=== PATIENT | female | born 1960 | race Caucasian/White ===

== ENCOUNTER 2020-08-28 09:36 | Inpatient (IN) | payer BC ==
[~2020-08-28] VITALS: Ht 165.1 cm; Wt 80.6 kg
[2020-08-28 10:56] LABS: BASOPHILS ABSOLUTE AUTO 0.02 K/mm3 (0.00-0.23); BASOPHILS PERCENT AUTO 0 % (0-2); EOSINOPHILS ABSOLUTE AUTO 0.01 K/mm3 (0.00-0.68); EOSINOPHILS PERCENT AUTO 0 % (0-6); Hematocrit 51.7 % (33.0-51.0); Hemoglobin 19.2 g/dL (11.5-16.0); IMMATURE GRAN ABSOLUTE AUTO 0.01 K/mm3 (0.00-0.10); IMMATURE GRAN PERCENT AUTO 0 % (0-1); LYMPHOCYTES ABSOLUTE AUTO 1.39 K/mm3 (0.84-5.20); LYMPHOCYTES PERCENT AUTO 18 % (21-46); MONOCYTES ABSOLUTE AUTO 0.68 K/mm3 (0.16-1.47); MONOCYTES PERCENT AUTO 9 % (4-13); Mean Corpuscular HGB 29.1 pg (26.0-34.0); Mean Corpuscular HGB Conc 37.1 g/dL (31.5-36.5); Mean Corpuscular Volume 78 fL (80-100); Mean Platelet Volume 9.8 fL (9.1-12.4); NEUTROPHILS ABSOLUTE AUTO 5.76 K/mm3 (1.96-9.15); NEUTROPHILS PERCENT AUTO 73 % (41-73); Platelet Count 361 K/mm3 (150-400); RDW Coefficient Variation 14.6 % (11.7-14.2); White Blood Cell Count 7.87 K/mm3 (4.00-11.30)
[2020-08-28 11:05] LABS: Source, Urine Clean Catch
[2020-08-28 11:27] LABS: Appearance, Urine Cloudy (Clear); Blood, Urine 4+ (Neg); Color, Urine Yellow (P-Yellow); Glucose Qualitative, Urine Neg (Neg); Ketones, Urine 1+ (Neg); Leukocyte Esterase, Urine 2+ (Neg); Nitrite, Urine Neg (Neg); Protein, Urine 2+ (Neg); Urobilinogen, Urine NORM (Normal); pH, Urine 6.5 (5.0-8.0)
[2020-08-28] MEDS ORDERED: OMEPRAZOLE MAGN20 M1 PO (11:29)
[2020-08-28 11:41] LABS: Albumin, Blood 4.2 g/dL (3.4-5.0); Bilirubin, Total 1.1 mg/dL (0.1-1.0); Creatinine, Blood 1.43 mg/dL (0.40-1.00); Globulin, Blood 4.2 g/dL (2.2-4.0); Potassium, Blood 2.1 mmol/L (3.5-5.5); Total Protein, Blood 8.4 g/dL (6.4-8.2)
[2020-08-28 11:48] LABS: Bilirubin, Urine 1+ (Neg)
[2020-08-28 11:51] LABS: Bacteria Few /hpf; Squamous Epithelial Cells Many /hpf (Few)
--- NOTE | 2020-08-28 18:32 | NUR ---
SHIFT SUMMARY PT ARRIVED TO MEDICAL FLOOR FOR ADMISSION AT APPROX 1600 TODAY. PT AxOx4. PLEASANT AND COOPERATIVE WITH CARE. ADMISSION & ASSESSMENT COMPLETED. IN THE ROOM. PT REPORTS NAUSEA. MEDICATED PER EMAR. CLEAR LIQ DIET. SBA FOR GENERAL WEAKNESS. PT CALLING APPROPRIATELY. PT ON CONTACT PRECAUTIONS FOR RULE OUT GI PANEL. PT GETTING IV POTASSIUM SUPPLEMENTS. VITALS REVIEWED. DENIES ANY NEEDS AT THIS TIME.
--- NOTE | 2020-08-28 21:12 | NUR ---
CALLED HOSPITALIST PT EXPERIENCING SEVERE NAUSEA. EMAR ZOFRAN WAS NOT DUE YET. NEW NAUSEA MEDICATION ORDERED AND IS NOW AVAILABLE PRN IN EMAR. I WILL WAIT TO ADMIN HER SCHEDULED PO MEDS UNTIL THE NAUSEA MEDICATION TAKES EFFECT.
--- NOTE | 2020-08-28 23:39 | NUR ---
IV POTASSIUM PT UNABLE TO TOLERATE IV POTASSIUM AT PRESCRIBED RATE. SHE SCREAMS IN PAIN, EVEN THOUGH I HAVE NS INFUSING AT SAME TIME. I HAVE IT INFUSING AT 20 ML/HR, WHICH SHE IS TOLERATING FOR NOW. SHE DOES STATE ALSO THAT SHE IS SUFFERING FROM ANXIETY.
--- NOTE | 2020-08-29 04:42 | NUR ---
SHIFT SUMMARY ADMITTED FOR N/V/D AND DEHYDRATION. FULL CODE. PT HAS COLITIS. HYPOKALEMIC, WE HAVE BEEN REPLACING K+. SHE DID NOT TOLERATE K+ IV WELL, WE WERE FORCED TO SLOW THE INFUSION SIGNIFICANTLY. BLOOD LABS HAVE BEEN DRAWN (INCLUDING BMP). I DID COLLECT AND SEND GI PANEL THIS SHIFT. CLEAR LIQUID DIET. NAUSEA THIS SHIFT, SEE PREVIOUS NOTE - COMPAZINE ORDERED WAS EFFECTIVE. NS INFUSING @ 125 ML/HR. BM'S ARE LIQUID. TELEMETRY: NSR @ 61 BPM.
[2020-08-29 04:50] LABS: Hematocrit 41.3 % (33.0-51.0); Hemoglobin 14.6 g/dL (11.5-16.0); Mean Corpuscular HGB Conc 35.4 g/dL (31.5-36.5); Mean Corpuscular Volume 82 fL (80-100); Mean Platelet Volume 9.9 fL (9.1-12.4); Platelet Count 233 K/mm3 (150-400); RDW Coefficient Variation 14.5 % (11.7-14.2); RDW Standard Deviation 41.7 fL (35.1-46.3); Red Blood Cell Count 5.03 M/mm3 (3.80-5.20); White Blood Cell Count 6.14 K/mm3 (4.00-11.30)
[2020-08-29 05:20] LABS: Bun/Creatinine Ratio 22.9 (12.0-20.0); Calcium, Blood 8.3 mg/dL (8.5-10.1); Creatinine, Blood 1.05 mg/dL (0.40-1.00); Magnesium, Blood 2.4 mg/dL (1.6-2.4)
[2020-08-29 07:58] LABS: Adenovirus F 40/41 Not Detected (NOT DETECT); Astrovirus Not Detected (NOT DETECT); Campylobacter Sp Not Detected (NOT DETECT); Cryptosporidium Not Detected (NOT DETECT); Cyclospora Cayetanensis Not Detected (NOT DETECT); E. Coli O157 Not Detected (NOT DETECT); Entamoeba Histolytica Not Detected (NOT DETECT); Enteroaggregative E. coli-EAEC Not Detected (NOT DETECT); Enteropathogenic E. coli-EPEC Not Detected (NOT DETECT); Enterotoxigenic E. coli-ETEC Not Detected (NOT DETECT); Giardia Lamblia Not Detected (NOT DETECT); Norovirus GI/GII Not Detected (NOT DETECT); Plesiomonas Shigelloides Not Detected (NOT DETECT); Rotavirus A Not Detected (NOT DETECT); Salmonella Sp Not Detected (NOT DETECT); Sapovirus Not Detected (NOT DETECT); Shiga Toxin-prod E. coli-STEC Not Detected (NOT DETECT); Shigella/Enteroin E. coli-EIEC Not Detected (NOT DETECT); Vibrio Cholerae Not Detected (NOT DETECT); Vibrio Sp Not Detected (NOT DETECT); Yersinia Enterocolitica Not Detected (NOT DETECT)
[2020-08-29] MEDS ORDERED: ORTIKOS9 MG PO (12:54)
--- NOTE | 2020-08-29 13:44 | NUR ---
DISCHARGE SUMMARY PT AxOx4. PLEASANT AND COOPERATIVE WITH CARE. DC'ING TODAY TO HOME WITH . DISCUSSED DC INSTRUCTIONS WITH PATIENT, INCLUDING DC MEDICATIONS, AND FOLLOW UP APPTS. PT VERBALIZES UNDERSTANDING. DENIES ANY FURTHER QUESTIONS AT THIS TIME. VITALS REVIEWED. ESCORTED OUT VIA WC WITH KEY ENTRY OPERATOR AND .
== END 2020-08-29 13:41 | disposition home or self-care (01) | DRG 392 ==
LOC: ER 09:36 → MEDS 14:12 → ENPENDDIS 08-29 12:23 → MEDS 08-29 13:41
PROVIDERS: Emergency Medicine; Nurse Practitioner Acute Care; ADMIT Internal Medicine
PROC: 3E0234Z Introduction of Serum, Toxoid and Vaccine into Muscle, Percutaneous Approach (ICD-10-PCS; principal; 2020-08-28)
DX: K52.832 Lymphocytic colitis (principal); N17.9 Acute kidney failure, unspecified; E87.6 Hypokalemia; I10 Essential (primary) hypertension; E86.0 Dehydration; Z23 Encounter for immunization; E86.9 Volume depletion, unspecified; M79.7 Fibromyalgia; K21.9 Gastro-esophageal reflux disease without esophagitis; Z87.891 Personal history of nicotine dependence
CPT/HCPCS: 0097U; 36415; 74177; 80048; 80053; 81001; 82150; 83690; 83735; 84484; 85025; 85027; 87086; 93005; 93010; 96365-59; 96366; 96375; 96376; 99285-25; A9270; J0780; J2270; J2405; J3480; J7030; J7120; Q2038; Q9967

== ENCOUNTER → 2020-09-03 | Outpatient (CLI) | payer BC ==
[~2020-09-03] MED LIST: AMLO5 PO; Bactrim Ds Tab1 EACH PO; Flomax0.4 MG PO; IMODIUM A-D2 M1 PO; OMEPRAZOLE MAGN20 M1 PO; ONDA4ODT MM; ORTIKOS9 MG PO; OXYB5 PO; Ondansetron Odt8 MG SL; POTA20LUD PO; PREG150 PO; PYRIDIUM200 MG PO; Percocet 5-3251 EACH PO; TAMSULOSIN HCL0.4 M1 PO
[2020-09-03 20:07] LABS: Anion Gap 5 mmol/L (6-16); Blood Urea Nitrogen 11 mg/dL (8-24); CO2, Blood 32 mmol/L (21-32); Calcium, Blood 8.7 mg/dL (8.5-10.1); Chloride, Blood 107 mmol/L (98-108); Creatinine, Blood 0.52 mg/dL (0.40-1.00); Glomerular Filtration Rate >60 (60-); Glucose, Blood 86 mg/dL (70-99); Potassium, Blood 2.7 mmol/L (3.5-5.5); Sodium, Blood 144 mmol/L (136-145)
== END | disposition home or self-care (01) ==
LOC: LAB SHORT 19:08 → LAB 19:08
PROVIDERS: Family Medicine
DX: E87.6 Hypokalemia (principal)
CPT/HCPCS: 80048

== ENCOUNTER 2020-09-23 19:19 | Emergency (ER) | payer BC ==
[~2020-09-23] VITALS: Ht 165.1 cm; Wt 80.7 kg
[~2020-09-23 19:19] MED LIST changes: -AMLO5 PO; -Bactrim Ds Tab1 EACH PO; -Flomax0.4 MG PO; -IMODIUM A-D2 M1 PO; -ONDA4ODT MM; -OXYB5 PO; -Ondansetron Odt8 MG SL; -POTA20LUD PO; -PREG150 PO; -PYRIDIUM200 MG PO; -Percocet 5-3251 EACH PO; -TAMSULOSIN HCL0.4 M1 PO
[2020-09-23 20:50] LABS: BASOPHILS ABSOLUTE AUTO 0.01 K/mm3 (0.00-0.23); BASOPHILS PERCENT AUTO 0 % (0-2); EOSINOPHILS ABSOLUTE AUTO 0.04 K/mm3 (0.00-0.68); EOSINOPHILS PERCENT AUTO 1 % (0-6); Hematocrit 49.3 % (33.0-51.0); Hemoglobin 16.1 g/dL (11.5-16.0); IMMATURE GRAN ABSOLUTE AUTO 0.02 K/mm3 (0.00-0.10); IMMATURE GRAN PERCENT AUTO 0 % (0-1); LYMPHOCYTES ABSOLUTE AUTO 1.19 K/mm3 (0.84-5.20); LYMPHOCYTES PERCENT AUTO 17 % (21-46); MONOCYTES ABSOLUTE AUTO 0.56 K/mm3 (0.16-1.47); MONOCYTES PERCENT AUTO 8 % (4-13); Mean Corpuscular HGB 28.3 pg (26.0-34.0); Mean Corpuscular HGB Conc 32.7 g/dL (31.5-36.5); Mean Corpuscular Volume 87 fL (80-100); Mean Platelet Volume 9.9 fL (9.1-12.4); NEUTROPHILS ABSOLUTE AUTO 5.12 K/mm3 (1.96-9.15); NEUTROPHILS PERCENT AUTO 74 % (41-73); Platelet Count 278 K/mm3 (150-400); RDW Coefficient Variation 14.2 % (11.7-14.2); RDW Standard Deviation 45.6 fL (35.1-46.3); Red Blood Cell Count 5.69 M/mm3 (3.80-5.20); White Blood Cell Count 6.94 K/mm3 (4.00-11.30)
[2020-09-23 21:25] LABS: Alanine Aminotransfer (ALT/SGP 23 U/L (12-78); Albumin/Globulin Ratio 1.1 (0.8-1.8); Alk Phos 72 U/L (50-136); Anion Gap 7 mmol/L (6-16); Aspartate Aminotrans (AST/SGOT 17 U/L (12-37); Bilirubin, Total 0.5 mg/dL (0.1-1.0); Blood Urea Nitrogen 9 mg/dL (8-24); CO2, Blood 23 mmol/L (21-32); Calcium, Blood 10.1 mg/dL (8.5-10.1); Chloride, Blood 110 mmol/L (98-108); Creatinine, Blood 0.75 mg/dL (0.40-1.00); Globulin, Blood 3.7 g/dL (2.2-4.0); Glomerular Filtration Rate >60 (60-); Glucose, Blood 105 mg/dL (70-99); Potassium, Blood 4.1 mmol/L (3.5-5.5); Sodium, Blood 140 mmol/L (136-145); Total Protein, Blood 7.7 g/dL (6.4-8.2)
[2020-09-23 21:38] LABS: Source, Urine Clean Catch
[2020-09-23 21:49] LABS: Appearance, Urine Turbid (Clear); Bilirubin, Urine Neg (Neg); Blood, Urine 5+ (Neg); Color, Urine Brown (P-Yellow); Glucose Qualitative, Urine Neg (Neg); Ketones, Urine 2+ (Neg); Leukocyte Esterase, Urine 2+ (Neg); Nitrite, Urine Neg (Neg); Protein, Urine 4+ (Neg); Specific Gravity, Urine 1.025 (1.003-1.022); Urobilinogen, Urine NORM (Normal); pH, Urine 6.5 (5.0-8.0)
[2020-09-23 21:56] LABS: Bacteria Many /hpf; Calcium Oxalate Crystals Few /hpf; Red Blood Cells, Urine TNTC /hpf (0-2); Squamous Epithelial Cells Not Seen /hpf (Few); White Blood Cells, Urine 25-50 /hpf (0-5); Yeast/Fungi Urine Few /hpf
[2020-09-23 21:57] LABS: Amorphous Mod (0-Heavy)
[2020-09-24] MEDS ORDERED: Bactrim Ds Tab1 EACH PO (02:02)
[2020-09-24] MEDS ORDERED: ONDA4ODT MM (02:02)
[2020-09-24] MEDS ORDERED: Flomax0.4 MG PO (02:02)
[2020-09-24] MEDS ORDERED: Percocet 5-3251 EACH PO (02:02)
== END 2020-09-24 02:44 | disposition home or self-care (01) ==
LOC: ER 19:19
PROVIDERS: Student in an Organized Health Care Education/Training Program
DX: N13.2 Hydronephrosis with renal and ureteral calculous obstruction (principal); I10 Essential (primary) hypertension; K21.9 Gastro-esophageal reflux disease without esophagitis; Z87.891 Personal history of nicotine dependence; Z79.52 Long term (current) use of systemic steroids; Z79.899 Other long term (current) drug therapy
CPT/HCPCS: 36415; 74176; 80053; 81001; 83690; 85025; 87086; 96365; 96375; 99284-25; A9270; J0696; J1170; J1885; J2405; J7030

== ENCOUNTER 2020-11-27 15:52 | Observation (INO) | payer BC ==
[~2020-11-27] VITALS: Ht 167.6 cm; Wt 78.6 kg
[~2020-11-27 15:52] MED LIST changes: +Bactrim Ds Tab1 EACH PO; +Flomax0.4 MG PO; +ONDA4ODT MM; +Percocet 5-3251 EACH PO
[2020-11-27 16:23] LABS: BASOPHILS ABSOLUTE AUTO 0.02 K/mm3 (0.00-0.23); BASOPHILS PERCENT AUTO 0 % (0-2); EOSINOPHILS PERCENT AUTO 0 % (0-6); Hematocrit 50.7 % (33.0-51.0); Hemoglobin 16.8 g/dL (11.5-16.0); IMMATURE GRAN ABSOLUTE AUTO 0.03 K/mm3 (0.00-0.10); IMMATURE GRAN PERCENT AUTO 0 % (0-1); LYMPHOCYTES ABSOLUTE AUTO 0.94 K/mm3 (0.84-5.20); LYMPHOCYTES PERCENT AUTO 11 % (21-46); MONOCYTES ABSOLUTE AUTO 0.38 K/mm3 (0.16-1.47); MONOCYTES PERCENT AUTO 5 % (4-13); Mean Corpuscular HGB 28.1 pg (26.0-34.0); Mean Corpuscular HGB Conc 33.1 g/dL (31.5-36.5); Mean Corpuscular Volume 85 fL (80-100); NEUTROPHILS PERCENT AUTO 83 % (41-73); Platelet Count 280 K/mm3 (150-400); RDW Coefficient Variation 13.6 % (11.7-14.2); RDW Standard Deviation 42.4 fL (35.1-46.3); Red Blood Cell Count 5.98 M/mm3 (3.80-5.20); White Blood Cell Count 8.27 K/mm3 (4.00-11.30)
[2020-11-27 16:54] LABS: Alanine Aminotransfer (ALT/SGP 17 U/L (12-78); Albumin, Blood 4.3 g/dL (3.4-5.0); Albumin/Globulin Ratio 1.2 (0.8-1.8); Alk Phos 57 U/L (50-136); Anion Gap 7 mmol/L (6-16); Aspartate Aminotrans (AST/SGOT 12 U/L (12-37); Bilirubin, Total 0.8 mg/dL (0.1-1.0); Blood Urea Nitrogen 11 mg/dL (8-24); Bun/Creatinine Ratio 16.6 (12.0-20.0); CO2, Blood 27 mmol/L (21-32); Chloride, Blood 103 mmol/L (98-108); Creatinine, Blood 0.66 mg/dL (0.40-1.00); Globulin, Blood 3.7 g/dL (2.2-4.0); Glomerular Filtration Rate >60 (60-); Glucose, Blood 164 mg/dL (70-99); Potassium, Blood 3.2 mmol/L (3.5-5.5); Sodium, Blood 137 mmol/L (136-145); Troponin I <0.015 ng/mL (0.000-0.040)
[2020-11-27] MEDS ORDERED: AMLO5 PO (17:01)
[2020-11-27] MEDS ORDERED: POTA20LUD PO (17:01)
[2020-11-27] MEDS ORDERED: PREG150 PO (19:34)
[2020-11-27] MEDS ORDERED: OXYB5 PO (19:36)
[2020-11-27] MEDS ORDERED: PYRIDIUM200 MG PO (19:38)
[2020-11-27] MEDS ORDERED: IMODIUM A-D2 M1 PO (19:39)
[2020-11-27] MEDS ORDERED: Ondansetron Odt8 MG SL (19:41)
[2020-11-27] MEDS ORDERED: TAMSULOSIN HCL0.4 M1 PO (19:44)
[2020-11-28 02:53] LABS: Anion Gap 6 mmol/L (6-16); Blood Urea Nitrogen 10 mg/dL (8-24); Bun/Creatinine Ratio 14.5 (12.0-20.0); CO2, Blood 27 mmol/L (21-32); Calcium, Blood 8.9 mg/dL (8.5-10.1); Chloride, Blood 105 mmol/L (98-108); Creatinine, Blood 0.69 mg/dL (0.40-1.00); Glomerular Filtration Rate >60 (60-); Glucose, Blood 138 mg/dL (70-99); Potassium, Blood 3.8 mmol/L (3.5-5.5); Sodium, Blood 138 mmol/L (136-145)
--- NOTE | 2020-11-28 06:13 | NUR ---
SHIFT SUMMARY PT AOX4, VSS. PLACED ON 2 L VIA NC IN NIGHT DUE TO ADMIN OF MORPHINE 2 MG IV CAUSING SATS TO DROP TO 87%. O2 REMOVED AFTER PT AWAKENS IN EARLY AM AND SATS BACK UP TO LOW-MID 90'S. PT DENIES CP, C/O SOME EPIGASTRIC PAIN ON ARRIVAL, WAS ACTIVELY HAVING N/V ON TRANSFER FROM [facility] TO HOSPITAL BED. NO RELIEF FOLLOWING PHENERGAN, RELIEF FOLLOWING REGLAN FOR NAUSEA AND MORPHINE FOR PAIN. NO FURTHER EPISODES OF EMESIS FOLLOWING REGLAN. TROP -, POTASSIUM INFUSING PER ORDERS T/O SHIFT. PT C/O BURNING IN IV DESPITE INFUSION WITH NS KVO, REDUCED RATE TO 35 MLS/HR FROM 50 MLS/HR.
--- NOTE | 2020-11-28 08:00 | NUR ---
Pt laying in bed awake a/ox3, pleasant and coopertive with care, follows commands well, denies pain or sob at this time, denies nausia, lungs are clear t/o, resp even and unlabored, no cough noted, hrr, murmur noted, tele in place running sr per montior, see strip, no edema noted, ppp+2, cap refill <3sec, vs stable, afebrile, iv site is clear and patent, btx4, abd flat soft nontender, voids without diff, skin c/w/d, maew, vikas, call light in reach.
--- NOTE | 2020-11-28 13:45 | NUR ---
PT HAS BEEN DISCHARGED TO HOME, WENT OVER DISCHARGE INSTRUCTIONS WITH HER SHE VERBALIZED UNDERSTANDING. IV REMOVED INTACT, LEFT VIA WHEELCHAIR WITH WHEELCHAIR VAN OPERATOR FIRST RESPONDER IN ATTENDENCE WITH ALL HER BELONGINGS.
== END 2020-11-28 13:31 | disposition home or self-care (01) ==
LOC: ER 15:52 → PCU 15:53
PROVIDERS: Physician Assistant; ADMIT Internal Medicine
DX: R07.89 Other chest pain (principal); K52.832 Lymphocytic colitis; K21.9 Gastro-esophageal reflux disease without esophagitis; I10 Essential (primary) hypertension; R11.2 Nausea with vomiting, unspecified; E87.6 Hypokalemia; Z87.891 Personal history of nicotine dependence
CPT/HCPCS: 36415; 71045; 80048; 80053; 82947; 83690; 83880; 84484; 85025; 85379; 93005; 93010; 96361; 96372; 96374; 96375; 96376; 99285-25; A9270; G0378; J1100; J1650; J2270; J2405; J2550; J2765; J3480; J7030; J7040

== ENCOUNTER 2020-11-30 12:17 | Emergency (ER) | payer BC ==
[~2020-11-30] VITALS: Ht 167.6 cm; Wt 77.1 kg
[~2020-11-30 12:17] MED LIST changes: +AMLO5 PO; +IMODIUM A-D2 M1 PO; +OXYB5 PO; +Ondansetron Odt8 MG SL; +POTA20LUD PO; +PREG150 PO; +PYRIDIUM200 MG PO; +TAMSULOSIN HCL0.4 M1 PO
[2020-11-30 12:47] LABS: BASOPHILS ABSOLUTE AUTO 0.02 K/mm3 (0.00-0.23); BASOPHILS PERCENT AUTO 0 % (0-2); EOSINOPHILS ABSOLUTE AUTO 0.02 K/mm3 (0.00-0.68); EOSINOPHILS PERCENT AUTO 0 % (0-6); Hematocrit 51.8 % (33.0-51.0); Hemoglobin 17.5 g/dL (11.5-16.0); IMMATURE GRAN ABSOLUTE AUTO 0.03 K/mm3 (0.00-0.10); IMMATURE GRAN PERCENT AUTO 0 % (0-1); LYMPHOCYTES ABSOLUTE AUTO 1.75 K/mm3 (0.84-5.20); LYMPHOCYTES PERCENT AUTO 24 % (21-46); MONOCYTES ABSOLUTE AUTO 0.58 K/mm3 (0.16-1.47); MONOCYTES PERCENT AUTO 8 % (4-13); Mean Corpuscular HGB 28.5 pg (26.0-34.0); Mean Corpuscular HGB Conc 33.8 g/dL (31.5-36.5); Mean Corpuscular Volume 85 fL (80-100); Mean Platelet Volume 10.2 fL (9.1-12.4); NEUTROPHILS ABSOLUTE AUTO 4.86 K/mm3 (1.96-9.15); NEUTROPHILS PERCENT AUTO 67 % (41-73); Platelet Count 260 K/mm3 (150-400); RDW Coefficient Variation 13.5 % (11.7-14.2); RDW Standard Deviation 41.8 fL (35.1-46.3); Red Blood Cell Count 6.13 M/mm3 (3.80-5.20); White Blood Cell Count 7.26 K/mm3 (4.00-11.30)
[2020-11-30 13:10] LABS: Alanine Aminotransfer (ALT/SGP 19 U/L (12-78); Albumin, Blood 4.2 g/dL (3.4-5.0); Albumin/Globulin Ratio 1.1 (0.8-1.8); Alk Phos 52 U/L (50-136); Anion Gap 9 mmol/L (6-16); Aspartate Aminotrans (AST/SGOT 16 U/L (12-37); Bilirubin, Total 0.9 mg/dL (0.1-1.0); Blood Urea Nitrogen 12 mg/dL (8-24); Bun/Creatinine Ratio 18.1 (12.0-20.0); CO2, Blood 22 mmol/L (21-32); Calcium, Blood 10.2 mg/dL (8.5-10.1); Chloride, Blood 108 mmol/L (98-108); Creatinine, Blood 0.66 mg/dL (0.40-1.00); Globulin, Blood 3.8 g/dL (2.2-4.0); Glomerular Filtration Rate >60 (60-); Glucose, Blood 123 mg/dL (70-99); Potassium, Blood 3.5 mmol/L (3.5-5.5); Sodium, Blood 139 mmol/L (136-145)
[2020-11-30 14:08] LABS: Appearance, Urine Clear (Clear); Bilirubin, Urine Neg (Neg); Blood, Urine 3+ (Neg); Color, Urine Yellow (P-Yellow); Glucose Qualitative, Urine Neg (Neg); Ketones, Urine 2+ (Neg); Leukocyte Esterase, Urine 1+ (Neg); Nitrite, Urine Neg (Neg); Protein, Urine Neg (Neg); Specific Gravity, Urine 1.015 (1.003-1.022); Urobilinogen, Urine NORM (Normal)
[2020-11-30 14:14] LABS: Squamous Epithelial Cells Mod /hpf (Few)
[2020-11-30 14:15] LABS: Amorphous Light (0-Heavy); Bacteria Mod /hpf; Mucus Light (0-Heavy); Transitional Epithelial Cells Few /hpf (0-Rare)
[2020-11-30] MEDS ORDERED: ONDA4ODT MM (15:45)
== END 2020-11-30 16:27 | disposition home or self-care (01) ==
LOC: ER 12:17
PROVIDERS: Physician Assistant
DX: R10.9 Unspecified abdominal pain (principal); R11.2 Nausea with vomiting, unspecified
CPT/HCPCS: 36415; 74176; 80053; 81001; 83605; 83690; 84145; 85025; 87086; 93005; 93010; 96374; 96375; 99285-25; J1200; J1630; J2405; J7030

== ENCOUNTER 2021-03-18 06:19 | Day surgery (SDC) | payer BC ==
[~2021-03-18] VITALS: Ht 167.6 cm; Wt 79.0 kg
[~2021-03-18 06:19] MED LIST changes: +LORA.5 PO
--- NOTE | 2021-03-18 09:25 | NUR ---
PT RECOVERY ROOM POST PROCEDURE. PT AWAKE AND CONVERSING APPROPRIATELY; DENIES PAIN POST PROCEDURE. PT REPORTS FEELING LIGHTHEADED, BUT IMPROVING. MONITOR SR 60'S, B/P 141/71, AFEBRILE, SPO2 95% RA. R RADIAL SITE NO SWELLING/HEMATOMA, TR BAND IN PLACE; RUE POSITIVE PLEUTH POST TR BAND PLACEMENT. PT TAKING SIPS OF WATER WITHOUT ISSUE.
--- NOTE | 2021-03-18 10:10 | NUR ---
PT AMB TO BATHROOM, GAIT STEADY, VOIDED WITHOUT DIFFICULTY; SITE UNCHANGED WITH ACTIVITY.
--- NOTE | 2021-03-18 12:05 | NUR ---
PT'S SITE WITH POSITIVE BLEEDING, NO SWELLING/HEMATOMA, 4 CC AIR REINSTILLED IN TR BAND WITH BLEEDING RESOLVED. PT REPORTED FEELING LIGHTHEADED, VS UNCHANGED.
--- NOTE | 2021-03-18 12:20 | NUR ---
PT REPORTS LIGHTHEADED FEELING RESOLVED, AMB TO BATHRROM WITHOUT ISSUE, SITE UNCHANGED WITH ACTIVITY.
--- NOTE | 2021-03-18 13:50 | NUR ---
PT DRESSED SELF WITH MIN ASSISTANCE, SITE UNCHANGED. TR BAND REMOVED, CLOTH DOT APPLIED AND WRIST IMMOBILIZER PLACED; IV REMOVED-CANNULA INTACT.
--- NOTE | 2021-03-18 14:03 | NUR ---
PT RECEIVED DISCHARGE INSTRUCTIONS, MED LIST AND AFTER CARE INSTRUCTIONS; VERBALIZED GOOD UNDERSTANDING. PT LEFT FACILITY VIA W/C, CONDITION STABLE.
== END 2021-03-18 15:31 | disposition home or self-care (01) ==
LOC: MHTC 06:19
DX: I35.0 Nonrheumatic aortic (valve) stenosis (principal); R07.9 Chest pain, unspecified; R94.31 Abnormal electrocardiogram [ECG] [EKG]; I10 Essential (primary) hypertension; R09.89 Other specified symptoms and signs involving the circulatory and respiratory systems; E66.9 Obesity, unspecified; Z68.29 Body mass index [BMI] 29.0-29.9, adult; Z87.891 Personal history of nicotine dependence
CPT/HCPCS: 76937; 85347; 93454; 93571; 99152; 99153; C1769; C1887; C1894; J1644; J2250; J2370; J3010; J7030; J7050; Q9967

== ENCOUNTER 2024-05-10 06:05 | Day surgery (SDC) | payer MEDICARE, BC ==
[~2024-05-10] VITALS: Ht 167.6 cm; Wt 84.4 kg
[~2024-05-10 06:05] MED LIST changes: +Lactated Ringer's 1,000 ML IV ONE
[2024-05-10] MEDS ORDERED: NS 0 ML IV ONE (06:32)
[2024-05-10] MEDS ORDERED: CeFAZolin Sodium 2,000 MG VIAL ONE (06:32)
[2024-05-10] MEDS ORDERED: LIPITOR80 MG PO (06:42)
[2024-05-10] MEDS ORDERED: METOPROLOL TART25 MG PO (06:42)
[2024-05-10] MEDS ORDERED: LOSARTAN POTASS25 M2 PO (06:43)
[2024-05-10] MEDS ORDERED: ESCI10 PO (06:43)
[2024-05-10] MEDS ORDERED: Hydroxyzine HCl25 MG (06:43)
[2024-05-10] MEDS ORDERED: Aspir 8181 MG PO (06:44)
[2024-05-10] MEDS ORDERED: Lactated Ringer's 1,000 ML IV ONE ×2 (07:00→07:56)
[2024-05-10] MEDS ORDERED: FentaNYL Citrate 50 MCG/ML 2 ML Injection ONE (07:04)
[2024-05-10] MEDS ORDERED: propofoL 20 ML IV ONE (07:04)
[2024-05-10] MEDS ORDERED: Midazolam HCl 1MG / ML 2ML Vial ONE (07:28)
[2024-05-10] MEDS ORDERED: Ondansetron HCl 2 MG / ML 2ML Vial ONE (07:50)
[2024-05-10] MEDS ORDERED: Dexamethasone Sod Phos 10 MG/ML 1ML VIAL ONE (07:50)
[2024-05-10] MEDS ORDERED: Ropivacaine 0.5% HCl/Pf 5 MG/ML 20ML VIAL INJ ONE (07:55)
[2024-05-10] MEDS ORDERED: Ketorolac Tromethamine 30mg Vial ONE (07:56)
[2024-05-10] MEDS ORDERED: ePHEDrine Sulfate 50 MG/ML 1ML Injection ONE (07:57)
[2024-05-10 09:46] VITALS: BP 121/67
--- NOTE | 2024-05-10 14:00 | NUR ---
05/10/24 1400 EMILY BURNS LATE ENTRY: SD NURSE TRUSS NOTICED THERE WERE NO FLUIDS MOVED OVER IN MEDITECH, TRIED TO GO INTO OR SCREEN AND FIX BASED ON ANESTHESIA CHART GIVEN 1300 LR IN OR. PT CAME INTO PACU WITH 700ML LR. NO FLUIDS WERE GIVEN IN SD.
== END 2024-05-10 10:12 | disposition home or self-care (01) ==
LOC: ORSCSDS 06:05
PROVIDERS: Surgery
PROC: 0WUF0JZ Supplement Abdominal Wall with Synthetic Substitute, Open Approach (ICD-10-PCS; principal; 2024-05-10 07:30)
DX: K43.2 Incisional hernia without obstruction or gangrene (principal); I10 Essential (primary) hypertension; E78.5 Hyperlipidemia, unspecified; Z87.891 Personal history of nicotine dependence; K21.9 Gastro-esophageal reflux disease without esophagitis; F32.A Depression, unspecified; F41.9 Anxiety disorder, unspecified; Z79.899 Other long term (current) drug therapy; M79.7 Fibromyalgia
CPT/HCPCS: C1781; J0690; J1100; J1885; J2250; J2405; J2704; J2795; J3010; J7120

== ENCOUNTER 2024-07-18 21:09 | Inpatient (IN) | payer MEDICARE, BC ==
[~2024-07-18] VITALS: Ht 167.6 cm; Wt 89.7 kg
[~2024-07-18 21:09] MED LIST changes: +Aspir 8181 MG PO; +ESCI10 PO; +Hydroxyzine HCl25 MG; +LIPITOR80 MG PO; +LOSARTAN POTASS25 M2 PO; -Lactated Ringer's 1,000 ML IV ONE; +METOPROLOL TART25 MG PO
[2024-07-18] MEDS ORDERED: HYDROmorphone HCl/Pf 1MG SYR IV ONE (21:30)
[2024-07-18] MEDS ORDERED: Ondansetron HCl 2 MG / ML 2ML Vial IV ONE (21:30)
[2024-07-18] MEDS ORDERED: Ketorolac Tromethamine 30mg Vial IV ONE (22:20)
[2024-07-18 22:55] LABS: BASOPHILS ABSOLUTE AUTO 0.03 K/mm3 (0.00-0.23); BASOPHILS PERCENT AUTO 0 % (0-2); EOSINOPHILS ABSOLUTE AUTO 0.15 K/mm3 (0.00-0.68); EOSINOPHILS PERCENT AUTO 2 % (0-6); Hematocrit 37.1 % (33.0-51.0); IMMATURE GRAN ABSOLUTE AUTO 0.06 K/mm3 (0.00-0.10); IMMATURE GRAN PERCENT AUTO 1 % (0-1); LYMPHOCYTES ABSOLUTE AUTO 1.24 K/mm3 (0.84-5.20); LYMPHOCYTES PERCENT AUTO 12 % (21-46); MONOCYTES PERCENT AUTO 7 % (4-13); Mean Corpuscular HGB 23.5 pg (26.0-34.0); Mean Corpuscular HGB Conc 32.3 g/dL (31.5-36.5); Mean Corpuscular Volume 73 fL (80-100); Mean Platelet Volume 9.8 fL (9.1-12.4); NEUTROPHILS ABSOLUTE AUTO 7.97 K/mm3 (1.96-9.15); NEUTROPHILS PERCENT AUTO 79 % (41-73); Platelet Count 232 K/mm3 (150-400); RDW Coefficient Variation 17.5 % (11.7-14.2); RDW Standard Deviation 46.1 fL (35.1-46.3); White Blood Cell Count 10.15 K/mm3 (4.00-11.30)
[2024-07-18 23:08] LABS: Albumin, Blood 3.5 g/dL (3.4-5.0); Albumin/Globulin Ratio 1.1 (0.8-1.8); Bilirubin, Total 0.6 mg/dL (0.1-1.0); Calcium, Blood 9.2 mg/dL (8.5-10.1); Creatinine, Blood 0.7 mg/dL (0.40-1.00); Globulin, Blood 3.3 g/dL (2.2-4.0); Potassium, Blood 3.4 mmol/L (3.5-5.5); Total Protein, Blood 6.8 g/dL (6.4-8.2)
[2024-07-18] MEDS ORDERED: FLU VACC TS2024-25(6MOS UP)/PF 45 MCG/0.5 ML SYRINGE IM ONE (23:30)
[2024-07-18] MEDS ORDERED: OxyCODONE HCL 5 MG TAB PO PRN (23:30)
[2024-07-18] MEDS ORDERED: FentaNYL Citrate 50 MCG/ML 2 ML Injection IV PRN (23:30)
[2024-07-19] VITALS (21 sets, daily range): BP systolic 109–154; BP diastolic 60–95
[2024-07-19] MEDS ORDERED: POT CHLORIDE 10% PO (01:24)
[2024-07-19] MEDS ORDERED: Lactated Ringer's 1,000 ML IV SCH (03:45)
[2024-07-19] MEDS ORDERED: HYDROmorphone HCl/Pf 1MG SYR IV PRN (03:45)
[2024-07-19] MEDS ORDERED: Ondansetron HCl 2 MG / ML 2ML Vial IV PRN (04:00)
[2024-07-19] MEDS ORDERED: Ondansetron 4 MG SoluTab MM PRN (04:15)
[2024-07-19] MEDS ORDERED: HyDROXyzine HCl 25 MG Tab PO PRN (04:15)
[2024-07-19] MEDS ORDERED: Potassium Chloride 40 MEQ in NS 250 ML IV ONE (04:50)
[2024-07-19 05:20] LABS: BASOPHILS ABSOLUTE AUTO 0.01 K/mm3 (0.00-0.23); BASOPHILS PERCENT AUTO 0 % (0-2); EOSINOPHILS ABSOLUTE AUTO 0.02 K/mm3 (0.00-0.68); EOSINOPHILS PERCENT AUTO 0 % (0-6); Hematocrit 35.1 % (33.0-51.0); Hemoglobin 11.2 g/dL (11.5-16.0); IMMATURE GRAN ABSOLUTE AUTO 0.03 K/mm3 (0.00-0.10); IMMATURE GRAN PERCENT AUTO 0 % (0-1); LYMPHOCYTES ABSOLUTE AUTO 0.93 K/mm3 (0.84-5.20); LYMPHOCYTES PERCENT AUTO 13 % (21-46); MONOCYTES ABSOLUTE AUTO 0.48 K/mm3 (0.16-1.47); MONOCYTES PERCENT AUTO 7 % (4-13); Mean Corpuscular HGB 23.6 pg (26.0-34.0); Mean Corpuscular HGB Conc 31.9 g/dL (31.5-36.5); Mean Corpuscular Volume 74 fL (80-100); Mean Platelet Volume 9.8 fL (9.1-12.4); NEUTROPHILS ABSOLUTE AUTO 5.63 K/mm3 (1.96-9.15); NEUTROPHILS PERCENT AUTO 79 % (41-73); Platelet Count 215 K/mm3 (150-400); RDW Coefficient Variation 17.5 % (11.7-14.2); RDW Standard Deviation 46.7 fL (35.1-46.3); Red Blood Cell Count 4.75 M/mm3 (3.80-5.20)
[2024-07-19 05:53] LABS: Albumin, Blood 3.2 g/dL (3.4-5.0); Bilirubin, Total 0.6 mg/dL (0.1-1.0); Bun/Creatinine Ratio 26.1 (12.0-20.0); Calcium, Blood 8.9 mg/dL (8.5-10.1); Creatinine, Blood 0.61 mg/dL (0.40-1.00); Globulin, Blood 3.2 g/dL (2.2-4.0); Potassium, Blood 3.8 mmol/L (3.5-5.5); Total Protein, Blood 6.4 g/dL (6.4-8.2)
[2024-07-19] MEDS ORDERED: Omeprazole 20 MG CapCR PO SCH (06:00)
--- NOTE | 2024-07-19 06:30 | NUR ---
NOC SUMMARY- PT ARRIVED IN DISCOMFORT. PT TRANSFERED TO BED. PT MEDICATED PER AUG WITH SOME RELIEF. PT ON CONTINOUS SPO2. PT REPORTED CONTINUED DISCOMFORT AND NOC PROVIDER CALLED AND ORDERED DILAUDID AND ZOFRAN. PT HAS BEEN COMFORTABLE. PT HAS A PUREWICK DEVICE AND IS VOIDING WELL. PT HAS REMAINED NPO. ORAL SWABS PROVIDED. PT CURRENTLY RESTING QUIETLY WITH NO COMPLAINTS. CALL LIGHT IN REACH.
--- NOTE | 2024-07-19 08:00 | NUR ---
PATIENT TRANSFERRED OFF UNIT FOR PROCEDURE
[2024-07-19] MEDS ORDERED: FentaNYL Citrate 50 MCG/ML 5 ML Injection ONE (08:03)
[2024-07-19] MEDS ORDERED: propofoL 20 ML IV ONE (08:03)
[2024-07-19] MEDS ORDERED: Dexamethasone Sod Phos 10 MG/ML 1ML VIAL ONE (08:04)
[2024-07-19] MEDS ORDERED: Ketorolac Tromethamine 30mg Vial ONE (08:04)
[2024-07-19] MEDS ORDERED: Lidocaine HCl 2% 20 ML MDV ONE (08:04)
[2024-07-19] MEDS ORDERED: Ondansetron HCl 2 MG / ML 2ML Vial ONE (08:05)
--- NOTE | 2024-07-19 08:17 | NUR ---
PT HAS 18G IV TO RIGHT AC THAT FLUSHES WELL AND FLOWS TO GRAVITY.
[2024-07-19] MEDS ORDERED: Bupivacaine 0.5% W/EPI 1:200000 SDV 30 ML Vial ONE (08:27)
[2024-07-19] MEDS ORDERED: Bupivacaine 0.5% HCl 5 MG/ML 30MLVIAL ONE (08:28)
[2024-07-19] MEDS ORDERED: Atorvastatin 40 MG Tab PO SCH (09:00)
[2024-07-19] MEDS ORDERED: AmLODIPine Besylate 5 MG Tab PO SCH (09:00)
[2024-07-19] MEDS ORDERED: Losartan Potassium 25 MG Tab PO SCH (09:00)
[2024-07-19] MEDS ORDERED: Metoprolol Tartrate 25 MG Tab PO SCH (09:00)
[2024-07-19] MEDS ORDERED: Citalopram Hydrobromide 20 MG Tab PO SCH (09:00)
[2024-07-19] MEDS ORDERED: FentaNYL Citrate 50 MCG/ML 2 ML Injection ONE (09:03)
[2024-07-19] MEDS ORDERED: FentaNYL Citrate 50 MCG/ML 2 ML Injection IV ONE (09:05)
[2024-07-19] MEDS ORDERED: Tranexamic Acid 1,000 MG in NS 100 ML IV SCH (09:25)
[2024-07-19] MEDS ORDERED: CeFAZolin Sodium 2,000 MG in NS 100 ML IV SCH (09:25)
[2024-07-19] MEDS ORDERED: CeFAZolin Sodium 2,000 MG VIAL ONE (09:29)
[2024-07-19] MEDS ORDERED: ePHEDrine Sulfate 50 MG/ML 1ML Injection ONE (10:07)
--- NOTE | 2024-07-19 10:16 | NUR ---
07/19/24 Fe Carey NOTED LARGE DARK PURPLE ECCYMOSIS TO RIGHT HIP AREA, SURGEON AWARE
--- NOTE | 2024-07-19 12:00 | NUR ---
RETURN TO UNIT AFTER RECEIVING REPORT FROM EQUITIES ANALYST, PATIENT TRANSFERRED TO UNIT VIA BED AT APPROX 1150. PATIENT ALERT, LETHARGIC - EASILY AROUSABLE WITH VERBAL STIMULI. COMMUNICATING NEEDS EFFECTIVELY. S/P R INTRAMEDULLARY NAILING - PPP, ABLE TO WIGGLE TOES, CAP REFILL <3 SECONDS. X3 AQUACEL DRESSINGS WITH SCANT DRAINAGE. REPORTING 6/[address] PLAN TO MEDICATE PER EMAR PRN. VSS. ON 2L VIA NC, SATs 90-94%. RR EVEN, UNLABORED. TOLERATING SMALL SIPS OF WATER AND JELLO - IVF INFUSING. CALL LIGHT IN REACH. FAMILY AT BEDSIDE.
--- NOTE | 2024-07-19 16:44 | NUR ---
SHIFT SUMMARY NO ACUTE EVENTS SINCE RETURN TO UNIT. PATIENT REMAINS ALERT AND ORIENTED X4. COMMUNICATING NEEDS EFFECTIVELY. VSS. TITRATED FROM 2L VIA NC TO ROOM AIR, SATs >90%. CONTINOUS PULSE OX AT BEDSIDE. S/P R INTRAMEDULLARY HIP NAILING - AQUACEL DRESSINGS C/D/I, MINIMAL BRUISING NOTED AROUND SITES. MANAGING PAIN PER EMAR. HAS YET TO AMBULATE POST OP - FWB TO RLE. X1 EPISODE OF INCREASED NAUSEA, NO VOMITING - PO ZOFRAN ADMINISTERED PER EMAR WITH RELIEF. VOIDING - PW IN PLACE FOR URINARY MANAGEMENT AT THIS TIME. CALL LIGHT IN REACH. MULTIPLE VISITORS AT BEDSIDE THROUGHOUT DAY.
[2024-07-20 04:19] VITALS: BP 131/71
[2024-07-20 05:05] LABS: BASOPHILS ABSOLUTE AUTO 0.01 K/mm3 (0.00-0.23); BASOPHILS PERCENT AUTO 0 % (0-2); EOSINOPHILS PERCENT AUTO 0 % (0-6); Hematocrit 30.6 % (33.0-51.0); Hemoglobin 9.6 g/dL (11.5-16.0); IMMATURE GRAN ABSOLUTE AUTO 0.05 K/mm3 (0.00-0.10); IMMATURE GRAN PERCENT AUTO 1 % (0-1); LYMPHOCYTES ABSOLUTE AUTO 0.73 K/mm3 (0.84-5.20); LYMPHOCYTES PERCENT AUTO 7 % (21-46); MONOCYTES ABSOLUTE AUTO 0.79 K/mm3 (0.16-1.47); MONOCYTES PERCENT AUTO 7 % (4-13); Mean Corpuscular HGB 23.6 pg (26.0-34.0); Mean Corpuscular HGB Conc 31.4 g/dL (31.5-36.5); Mean Corpuscular Volume 75 fL (80-100); Mean Platelet Volume 9.8 fL (9.1-12.4); NEUTROPHILS ABSOLUTE AUTO 9.53 K/mm3 (1.96-9.15); NEUTROPHILS PERCENT AUTO 86 % (41-73); Platelet Count 217 K/mm3 (150-400); RDW Standard Deviation 49.1 fL (35.1-46.3); Red Blood Cell Count 4.06 M/mm3 (3.80-5.20); White Blood Cell Count 11.11 K/mm3 (4.00-11.30)
--- NOTE | 2024-07-20 05:23 | NUR ---
SHIFT SUMMARY BRAULIO WAS ALERT AND FULLY ORIENTED ON ASSESMENT. PT COMPLAINED OF HIGH PAIN. MEDICATED PER EMAR. PAIN MODERATELY CONTROLLED. SUPERIOR DRESSING NOTED TO BE PARTLY SATURATED, NOT EXTENDING TO BORDER OF DRESSING. 2L O2 KEPT IN PLACE T/O NIGHT, PT DESATS BELOW 90 WHILE SLEEPING. PT SENSATION AND CIRCULATION DISTAL TO INSCISION INTACT. DRESSINGS INTACT. NO ACUTE EVENTS.
[2024-07-20 05:59] LABS: Bun/Creatinine Ratio 21.2 (12.0-20.0); Calcium, Blood 9.1 mg/dL (8.5-10.1); Creatinine, Blood 0.57 mg/dL (0.40-1.00); Potassium, Blood 4.2 mmol/L (3.5-5.5)
[2024-07-20 11:27] LABS: Hematocrit 29.4 % (33.0-51.0); Hemoglobin 9.3 g/dL (11.5-16.0)
[2024-07-20] MEDS ORDERED: Calcium Carbonate 500 MG Tab Chew PO PRN (12:50)
[2024-07-20] MEDS ORDERED: OxyCODONE HCL 5 MG TAB PO PRN (14:25)
[2024-07-20] MEDS ORDERED: Enoxaparin 40 MG/0.4 ML SYR SC SCH (15:00)
--- NOTE | 2024-07-20 16:11 | NUR ---
SHIFT SUMMARY PT UP WITH THERAPY TODAY. 1 ASSIST WITH FWW/GB. PT PAINFUL. 2 ROXICODONE + 1MG IV DILAUDID FOR BREAKTHROUGH PAIN + ICE PRN. AQUACEL DRESSINGS REMAIN UNCHANGED--SUPERIOR DRESSING WITH MODERATE DRAINAGE PRESENT, BUT NOT GOING OUT TOWARDS BORDER OF DRESSING. RADHA PO AND VOIDING. ON 1-2L O2 VIA NC TO MAINTAIN SATS >90%. CONT BIOX IN PLACE. VSS. USES CALL LIGHT APPROPRIATELY.
--- NOTE | 2024-07-20 16:59 | NUR ---
spiritual care visit. Pt is awake and responsive and joined at bedside by spouse and other family members. Pt has suffered a hip fracture from a fall but remains positive and is optimsitic about recovery and eventual discharge. Pt's family appears distressed but are creating a warm atmopshere for the pt. Offered compassionate listening and conversation to family members. Family members expressed emotional relief in the form of laughter. Pt feels supported by many family members. Spirtual matters addressed. PT grew up mu-ism but is no longer practicing. Prayed with family and they verbally expressed gratitude for the visit.
[2024-07-20 19:36] VITALS: BP 115/52
[2024-07-20] MEDS ORDERED: HyDROXyzine HCl 25 MG Tab PO PRN (22:55)
--- NOTE | 2024-07-21 04:35 | NUR ---
SHIFT SUMMARY BRAULIO WAS ALERT AND FULLY ORIENTED ON ASSESMENT. PT AMBULATING SLOWLY WITH WALKER AND 1P ASSIST. USING BATHROOM APPROPRIATELY. PT NOTED TO DESAT TO HIGH 80'S ON RA, 1L O2 VIA NC IN PLACE MAINTAING SATS >90% . PAIN MODERATELY WELL CONTROLLED. DRESSINGS C/D/I, DISTAL CIRCULATION AND SENSATION INTACT. NO ACUTE EVENTS TONIGHT.
[2024-07-21 05:15] VITALS: BP 115/56
[2024-07-21 05:30] LABS: BASOPHILS ABSOLUTE AUTO 0.02 K/mm3 (0.00-0.23); BASOPHILS PERCENT AUTO 0 % (0-2); EOSINOPHILS ABSOLUTE AUTO 0.09 K/mm3 (0.00-0.68); EOSINOPHILS PERCENT AUTO 1 % (0-6); Hematocrit 27.8 % (33.0-51.0); Hemoglobin 8.5 g/dL (11.5-16.0); IMMATURE GRAN ABSOLUTE AUTO 0.03 K/mm3 (0.00-0.10); IMMATURE GRAN PERCENT AUTO 0 % (0-1); LYMPHOCYTES ABSOLUTE AUTO 1.15 K/mm3 (0.84-5.20); LYMPHOCYTES PERCENT AUTO 15 % (21-46); MONOCYTES ABSOLUTE AUTO 0.88 K/mm3 (0.16-1.47); MONOCYTES PERCENT AUTO 11 % (4-13); Mean Corpuscular HGB 23.5 pg (26.0-34.0); Mean Corpuscular HGB Conc 30.6 g/dL (31.5-36.5); Mean Corpuscular Volume 77 fL (80-100); Mean Platelet Volume 9.8 fL (9.1-12.4); NEUTROPHILS ABSOLUTE AUTO 5.59 K/mm3 (1.96-9.15); NEUTROPHILS PERCENT AUTO 72 % (41-73); Platelet Count 176 K/mm3 (150-400); RDW Coefficient Variation 17.9 % (11.7-14.2); RDW Standard Deviation 50.4 fL (35.1-46.3); Red Blood Cell Count 3.62 M/mm3 (3.80-5.20); White Blood Cell Count 7.76 K/mm3 (4.00-11.30)
[2024-07-21 05:48] LABS: Bun/Creatinine Ratio 30.2 (12.0-20.0); Creatinine, Blood 0.6 mg/dL (0.40-1.00); Potassium, Blood 4.4 mmol/L (3.5-5.5)
[2024-07-21 07:21] VITALS: BP 120/49
--- NOTE | 2024-07-21 11:45 | NUR ---
DR. ALMANZAR ROUNDED. DISCUSSED PAIN MANAGEMENT, TYLENOL ORDERED Q8 [address] ALMANZAR. ALSO DISCUSSED PT'S DESATURATION WHILE SLEEPING AFTER GETTING DILAUDID, DILAUDID DOSE DECREASED PER DR. ALMANZAR.
[2024-07-21 15:12] VITALS: BP 104/60
[2024-07-21] MEDS ORDERED: Acetaminophen 500 MG Tab PO SCH (16:00)
--- NOTE | 2024-07-21 16:14 | NUR ---
SHIFT SUMMARY PT IS POD#2 FROM R HIP REPAIR WITH DR. REGALADO. PAIN MANAGED WITH OXY AND TYLENOL TODAY. PT IS A 1 ASSIST WHEN OOB. SHE HAS REQUIRED O2 WHEN SLEEPING, INCENTIVE SPIROMETER ENCOURAGED AND REDUCING IV PAIN MEDICATION. FAMILY HAS BEEN PRESENT AND HELPFUL AT THE BEDSIDE. PT USES CALL LIGHT APPROPRIATELY.
[2024-07-21] MEDS ORDERED: Omeprazole 20 MG CapCR PO SCH (17:20)
--- NOTE | 2024-07-21 19:30 | NUR ---
BEDSIDE REPORT GIVEN TO NOC EDI HOBSON.
[2024-07-21 19:59] VITALS: BP 133/59
[2024-07-22 04:21] VITALS: BP 110/63
[2024-07-22 05:26] LABS: BASOPHILS ABSOLUTE AUTO 0.01 K/mm3 (0.00-0.23); BASOPHILS PERCENT AUTO 0 % (0-2); EOSINOPHILS PERCENT AUTO 4 % (0-6); Hematocrit 26.3 % (33.0-51.0); Hemoglobin 8.1 g/dL (11.5-16.0); IMMATURE GRAN ABSOLUTE AUTO 0.02 K/mm3 (0.00-0.10); IMMATURE GRAN PERCENT AUTO 0 % (0-1); LYMPHOCYTES ABSOLUTE AUTO 1.02 K/mm3 (0.84-5.20); LYMPHOCYTES PERCENT AUTO 19 % (21-46); MONOCYTES ABSOLUTE AUTO 0.65 K/mm3 (0.16-1.47); MONOCYTES PERCENT AUTO 12 % (4-13); Mean Corpuscular HGB 23.4 pg (26.0-34.0); Mean Corpuscular HGB Conc 30.8 g/dL (31.5-36.5); Mean Corpuscular Volume 76 fL (80-100); Mean Platelet Volume 10.2 fL (9.1-12.4); NEUTROPHILS ABSOLUTE AUTO 3.45 K/mm3 (1.96-9.15); NEUTROPHILS PERCENT AUTO 65 % (41-73); Platelet Count 178 K/mm3 (150-400); RDW Coefficient Variation 17.6 % (11.7-14.2); RDW Standard Deviation 48.5 fL (35.1-46.3); Red Blood Cell Count 3.46 M/mm3 (3.80-5.20); White Blood Cell Count 5.35 K/mm3 (4.00-11.30)
--- NOTE | 2024-07-22 05:27 | NUR ---
PT A&O X4, CALLS APPROPRIATELY UP TO BR WITH SUPERVISION, CAN GET IN AND OUT OF BED INDEPENDENTLY. VS WNL, VOIDING, NO BM YET. PT WITH MINIMAL PAIN MEDICATED WITH OXYCODONE 5MG X1 THIS SHIFT, AND THEN RECIEVES [id number] EVERY 6 HRS. PT STILL ON O2,2-3L, UNABLE TO WEEN THIS SHIFT, SATY <90 % ON RA. PT INCISION WITHOUT ISSUE AND DSG INTACT. WORKING WITH PT/OT, AWAITING D/T TO SNF FOR REHAB.
[2024-07-22 05:50] LABS: Bun/Creatinine Ratio 26.5 (12.0-20.0); Calcium, Blood 9.2 mg/dL (8.5-10.1); Creatinine, Blood 0.64 mg/dL (0.40-1.00)
[2024-07-22 07:34] VITALS: BP 114/63
[2024-07-22] MEDS ORDERED: Polyethylene Glycol 3350 17 gm PO PRN (10:50)
[2024-07-22] MEDS ORDERED: Miconazole Nitrate 2% 85 GM PWD TOP PRN (10:50)
--- NOTE | 2024-07-22 12:51 | NUR ---
DR. ALMANZAR ROUNDED THIS AM. SPOKE WITH DR. ALMANZAR REGARDING REDNESS UNDER R BREAST, MICONAZOLE POWDER ORDERED. NOTIFIED OF DECREASED H&H, PER DR. ALMANZAR AND DR. REGALADO OK TO GIVE LOVENOX. DISCUSSED PT'S CONTINUED NEED FOR 3LO2 WHILE SLEEPING, NOC OXIMETRY STUDY ORDERED, CPAP ORDERED. PER PT SHE HAD A SLEEP STUDY 7 YEARS AGO THAT WAS INCONCLUSIVE, DR. ALMANZAR NOTIFIED. SPOKE WITH LUZ HOOK REGARDING CPAP AND NOC OX STUDY.
[2024-07-22 15:07] VITALS: BP 121/57
--- NOTE | 2024-07-22 18:01 | NUR ---
SHIFT SUMMARY PT IS POD#3 FROM R HIP NAILING. PAIN MANAGED WITH TYLENOL AND OXYCODONE. FAMILY HAS BEEN PRESENT AND SUPPORTIVE. SHE USES HER CALL LIGHT APPROPRIATELY. HER APPETITE IS DECREASED BUT SHE IS TOLERATING PO. VSS. POSSIBLE DISCHARGE TO SNF TOMORROW.
[2024-07-22 19:38] VITALS: BP 122/61
[2024-07-23 05:03] LABS: BASOPHILS ABSOLUTE AUTO 0.01 K/mm3 (0.00-0.23); BASOPHILS PERCENT AUTO 0 % (0-2); EOSINOPHILS PERCENT AUTO 4 % (0-6); Hematocrit 25.6 % (33.0-51.0); IMMATURE GRAN ABSOLUTE AUTO 0.02 K/mm3 (0.00-0.10); IMMATURE GRAN PERCENT AUTO 0 % (0-1); LYMPHOCYTES ABSOLUTE AUTO 1.13 K/mm3 (0.84-5.20); LYMPHOCYTES PERCENT AUTO 25 % (21-46); MONOCYTES ABSOLUTE AUTO 0.58 K/mm3 (0.16-1.47); MONOCYTES PERCENT AUTO 13 % (4-13); Mean Corpuscular HGB 24.1 pg (26.0-34.0); Mean Corpuscular HGB Conc 31.3 g/dL (31.5-36.5); Mean Corpuscular Volume 77 fL (80-100); Mean Platelet Volume 10.3 fL (9.1-12.4); NEUTROPHILS ABSOLUTE AUTO 2.62 K/mm3 (1.96-9.15); NEUTROPHILS PERCENT AUTO 58 % (41-73); Platelet Count 195 K/mm3 (150-400); RDW Coefficient Variation 17.6 % (11.7-14.2); RDW Standard Deviation 49.1 fL (35.1-46.3); Red Blood Cell Count 3.32 M/mm3 (3.80-5.20); White Blood Cell Count 4.56 K/mm3 (4.00-11.30)
[2024-07-23 05:27] LABS: Bun/Creatinine Ratio 19.1 (12.0-20.0); Creatinine, Blood 0.63 mg/dL (0.40-1.00)
[2024-07-23 07:39] VITALS: BP 112/73
--- NOTE | 2024-07-23 13:10 | NUR ---
PATIENT DISCHARGED TO [facility]. ATTEMPTED TO CALL AND GIVE REPORT TWICE BUT UNABLE TO REACH. PATIENT IS CONTINTENT OF URINE AND STOOL. LAST BM TODAY 07/23/24. PATIENT WILL NEED CONTINUED THERAPY SHE RECOVERS FROM SURGERY. PAIN IS MANAGED AND PT IS EATING/DRINKING WELL.
== END 2024-07-23 13:07 | DRG 482 ==
LOC: ER 21:09 → SURS 21:10
PROVIDERS: Family Medicine; Physician Assistant; ADMIT Student in an Organized Health Care Education/Training Program
PROC: 0QS634Z Reposition Right Upper Femur with Internal Fixation Device, Percutaneous Approach (ICD-10-PCS; principal; 2024-07-20)
DX: S72.141A Displaced intertrochanteric fracture of right femur, initial encounter for closed fracture (principal); K21.9 Gastro-esophageal reflux disease without esophagitis; I10 Essential (primary) hypertension; M79.7 Fibromyalgia; Z96.651 Presence of right artificial knee joint; I25.10 Atherosclerotic heart disease of native coronary artery without angina pectoris; D64.9 Anemia, unspecified; W18.2XXA Fall in (into) shower or empty bathtub, initial encounter; G47.30 Sleep apnea, unspecified; Z95.1 Presence of aortocoronary bypass graft; Z90.710 Acquired absence of both cervix and uterus; Z90.49 Acquired absence of other specified parts of digestive tract; Y92.009 Unspecified place in unspecified non-institutional (private) residence as the place of occurrence of the external cause; Z79.899 Other long term (current) drug therapy; Z79.82 Long term (current) use of aspirin; Z98.890 Other specified postprocedural states; Z87.891 Personal history of nicotine dependence; Z87.19 Personal history of other diseases of the digestive system
CPT/HCPCS: 36415; 71045; 73502; 80048; 80053; 85014; 85018; 85025; 90656; 94762; 96374; 96375; 96376; 97110-CQ; 97116; 97162; 97165; 97530; 97530-CQ; 97535; 99285-25; A9270; C1713; C1769; G0378; J0690; J1100; J1171; J1650; J1885; J2405; J2704; J3010; J3480; J7050; J7120

== ENCOUNTER 2024-07-26 18:08 | Inpatient (IN) | payer MEDICARE, BC ==
[~2024-07-26] VITALS: Ht 167.6 cm; Wt 84.4 kg
[~2024-07-26 18:08] MED LIST changes: +CEPH500 PO; +HYDR1TAB94 PO; +POT CHLORIDE 10% PO
[2024-07-26] MEDS ORDERED: Acetaminophen 325 MG TABLET PO ONE (20:05)
[2024-07-26] MEDS ORDERED: CefTRIAXone Sodium 2,000 MG in NS 100 ML IV ONE (20:05)
[2024-07-26] MEDS ORDERED: NS 1,000 ML IV SCH (20:05)
[2024-07-26 20:26] LABS: BASOPHILS ABSOLUTE AUTO 0.01 K/mm3 (0.00-0.23); BASOPHILS PERCENT AUTO 0 % (0-2); EOSINOPHILS PERCENT AUTO 0 % (0-6); Hematocrit 24.3 % (33.0-51.0); Hemoglobin 7.8 g/dL (11.5-16.0); IMMATURE GRAN ABSOLUTE AUTO 0.04 K/mm3 (0.00-0.10); IMMATURE GRAN PERCENT AUTO 1 % (0-1); LYMPHOCYTES ABSOLUTE AUTO 0.25 K/mm3 (0.84-5.20); LYMPHOCYTES PERCENT AUTO 5 % (21-46); MONOCYTES ABSOLUTE AUTO 0.53 K/mm3 (0.16-1.47); MONOCYTES PERCENT AUTO 10 % (4-13); Mean Corpuscular HGB 24.1 pg (26.0-34.0); Mean Corpuscular HGB Conc 32.1 g/dL (31.5-36.5); Mean Corpuscular Volume 75 fL (80-100); Mean Platelet Volume 10.2 fL (9.1-12.4); NEUTROPHILS ABSOLUTE AUTO 4.42 K/mm3 (1.96-9.15); NEUTROPHILS PERCENT AUTO 84 % (41-73); Platelet Count 212 K/mm3 (150-400); RDW Coefficient Variation 19.1 % (11.7-14.2); RDW Standard Deviation 50.9 fL (35.1-46.3); Red Blood Cell Count 3.24 M/mm3 (3.80-5.20); White Blood Cell Count 5.25 K/mm3 (4.00-11.30)
[2024-07-26] MEDS ORDERED: Ondansetron HCl 2 MG / ML 2ML Vial IV ONE (20:50)
[2024-07-26] MEDS ORDERED: Morphine Sulfate 4 MG/1 ML Injection IV ONE (20:50)
[2024-07-26 20:55] LABS: Albumin, Blood 2.4 g/dL (3.4-5.0); Albumin/Globulin Ratio 0.6 (0.8-1.8); Bilirubin, Direct 0.4 mg/dL (0.0-0.3); Bilirubin, Indirect 0.8 mg/dL (0.1-0.7); Bilirubin, Total 1.2 mg/dL (0.1-1.0); Bun/Creatinine Ratio 18.5 (12.0-20.0); Calcium, Blood 8.8 mg/dL (8.5-10.1); Creatinine, Blood 0.59 mg/dL (0.40-1.00); Globulin, Blood 3.8 g/dL (2.2-4.0); Magnesium, Blood 1.7 mg/dL (1.6-2.4); Phosphorus, Blood 2.3 mg/dL (2.5-4.9); Potassium, Blood 3.3 mmol/L (3.5-5.5); Total Protein, Blood 6.2 g/dL (6.4-8.2)
[2024-07-26 21:13] LABS: International Normalized Ratio 1.09; Prothrombin Time Results 11.6 Sec (9.7-11.5)
[2024-07-26 22:05] LABS: Influenza A, PCR NEGATIVE (NEGATIVE); Influenza B, PCR NEGATIVE (NEGATIVE); Resp Syncytial Virus, PCR NEGATIVE (NEGATIVE); SARS-Cov-2 (COVID-19) PCR, MMC NEGATIVE (NEGATIVE)
[2024-07-27] MEDS ORDERED: Ondansetron HCl 2 MG / ML 2ML Vial IV PRN (00:50)
[2024-07-27] MEDS ORDERED: OxyCODONE HCL 5 MG TAB PO PRN (00:55)
[2024-07-27] MEDS ORDERED: FLU VACC TS2024-25(6MOS UP)/PF 45 MCG/0.5 ML SYRINGE IM ONE (00:55)
[2024-07-27] MEDS ORDERED: HyDROXyzine HCl 10 MG Tab PO PRN (00:55)
[2024-07-27] MEDS ORDERED: FentaNYL Citrate 50 MCG/ML 2 ML Injection IV PRN (03:25)
[2024-07-27] MEDS ORDERED: Potassium Phosphate Dibasic 30 MM in Dextrose 5% 500 ML IV STA (04:01)
[2024-07-27 05:34] LABS: Hematocrit 22.8 % (33.0-51.0); Hemoglobin 7.2 g/dL (11.5-16.0); Mean Corpuscular HGB 23.8 pg (26.0-34.0); Mean Corpuscular HGB Conc 31.6 g/dL (31.5-36.5); Mean Corpuscular Volume 76 fL (80-100); Mean Platelet Volume 9.9 fL (9.1-12.4); Platelet Count 203 K/mm3 (150-400); RDW Coefficient Variation 19.1 % (11.7-14.2); Red Blood Cell Count 3.02 M/mm3 (3.80-5.20); White Blood Cell Count 5.92 K/mm3 (4.00-11.30)
[2024-07-27 06:06] LABS: BAND PERCENT MAN 7 % (0-8); BASOPHILS PERCENT MAN 0 % (0-2); EOSINOPHILS PERCENT MAN 0 % (0-6); LYMPHOCYTES ABSOLUTE MAN 0.11 K/mm3 (0.84-5.20); LYMPHOCYTES PERCENT MAN 2 % (21-46); MONOCYTES ABSOLUTE MAN 0.29 K/mm3 (0.16-1.47); MONOCYTES PERCENT MAN 5 % (4-13); SEG NEUTROPHILS PERCENT MAN 86 % (41-73); TOTAL CELLS COUNTED 100
[2024-07-27 06:09] LABS: Albumin, Blood 2.2 g/dL (3.4-5.0); Albumin/Globulin Ratio 0.6 (0.8-1.8); Bilirubin, Total 0.7 mg/dL (0.1-1.0); Bun/Creatinine Ratio 17.3 (12.0-20.0); Calcium, Blood 8.3 mg/dL (8.5-10.1); Creatinine, Blood 0.52 mg/dL (0.40-1.00); Globulin, Blood 3.6 g/dL (2.2-4.0); Potassium, Blood 3.4 mmol/L (3.5-5.5); Total Protein, Blood 5.8 g/dL (6.4-8.2)
[2024-07-27] MEDS ORDERED: Apixaban 5 MG Tab PO SCH (09:00)
[2024-07-27 15:25] VITALS: BP 148/87
--- NOTE | 2024-07-27 17:05 | NUR ---
TELE VERIFIED, NS 95 BPM WITH CONSTANTIN GYM SUPERVISOR
[2024-07-27] MEDS ORDERED: Ketorolac Tromethamine 15mg Vial IV PRN (18:25)
[2024-07-27] MEDS ORDERED: Acetaminophen 325 MG TABLET PO PRN (18:35)
--- NOTE | 2024-07-27 18:35 | NUR ---
SPOKE WITH DR. CALVILLO REGARDING NEED FOR AM LABS, LOW URINE OUTPUT, DECREASING H&H, RESP RATE, FEVER MANAGEMENT AND O2 SATURATION. DR. ACLVILLO PLACED ORDERS.
[2024-07-27 19:22] VITALS: BP 139/73
--- NOTE | 2024-07-27 19:37 | NUR ---
ADMISSION: REPORT RECEIVED FROM ED RN. PT TO UNIT AT 1520. A/O, VSS. TELE APPLIED AND VERIFIED BY EDI LANE. PT REPORTS PAIN 8/10, MEDICATED PER EMAR. R ARM ELEVATED AND ICE APPLIED. CONT. BI OX IN PLACE FOR HIGH RISK PAIN MANAGEMENT. PT ORIENTED TO ROOM AND CALL LIGHT. VERBALIZED UNDERSTANDING.
[2024-07-27] MEDS ORDERED: NS 250 ML IV PRN (20:15)
[2024-07-27] MEDS ORDERED: Atorvastatin 40 MG Tab PO SCH (21:00)
[2024-07-27] MEDS ORDERED: Losartan Potassium 25 MG Tab PO SCH (21:00)
[2024-07-27] MEDS ORDERED: CefTRIAXone Sodium 1,000 MG in NS 100 ML IV SCH (21:00)
[2024-07-28 04:56] VITALS: BP 113/68
[2024-07-28] MEDS ORDERED: Vancomycin HCL 1,750 MG in NS 500 ML IV ONE (05:05)
[2024-07-28 05:10] LABS: BASOPHILS ABSOLUTE AUTO 0.01 K/mm3 (0.00-0.23); BASOPHILS PERCENT AUTO 0 % (0-2); EOSINOPHILS ABSOLUTE AUTO 0.05 K/mm3 (0.00-0.68); EOSINOPHILS PERCENT AUTO 1 % (0-6); Hematocrit 25.6 % (33.0-51.0); Hemoglobin 7.9 g/dL (11.5-16.0); IMMATURE GRAN ABSOLUTE AUTO 0.05 K/mm3 (0.00-0.10); IMMATURE GRAN PERCENT AUTO 1 % (0-1); LYMPHOCYTES ABSOLUTE AUTO 0.63 K/mm3 (0.84-5.20); LYMPHOCYTES PERCENT AUTO 10 % (21-46); MONOCYTES ABSOLUTE AUTO 0.79 K/mm3 (0.16-1.47); MONOCYTES PERCENT AUTO 13 % (4-13); Mean Corpuscular HGB 23.8 pg (26.0-34.0); Mean Corpuscular HGB Conc 30.9 g/dL (31.5-36.5); Mean Corpuscular Volume 77 fL (80-100); Mean Platelet Volume 10.1 fL (9.1-12.4); NEUTROPHILS ABSOLUTE AUTO 4.78 K/mm3 (1.96-9.15); NEUTROPHILS PERCENT AUTO 76 % (41-73); Platelet Count 207 K/mm3 (150-400); RDW Standard Deviation 52.9 fL (35.1-46.3); Red Blood Cell Count 3.32 M/mm3 (3.80-5.20); White Blood Cell Count 6.31 K/mm3 (4.00-11.30)
[2024-07-28 05:44] LABS: Bun/Creatinine Ratio 19.7 (12.0-20.0); Calcium, Blood 9.3 mg/dL (8.5-10.1); Creatinine, Blood 0.46 mg/dL (0.40-1.00); Potassium, Blood 3.4 mmol/L (3.5-5.5)
[2024-07-28] MEDS ORDERED: Omeprazole 20 MG CapCR PO SCH (06:00)
--- NOTE | 2024-07-28 06:47 | NUR ---
SHIFT SUMMARY AOX4. VSS. TELE NSR. DENIES DYSPNEA. SPO2 >90% ON 3L O2. R AC CELLULITIS OUTLINED @BEGINNING OF SHIFT W/MARKER, SLIGHTLY PINK OUTSIDE UPPER TOP LINE OF MARKER, AFTER IV ABX PINK/REDNESS DECREASED BACK INTO OUTLINED PARAMETER. VERY RED, HARD/FIRM, HOT TO TOUCH, PEAKED CENTER, TENDER. RECIEVED 2 + BLOOD CX RESULTS THIS SHIFT. INFORMED DR DE GUZMAN & HE ORDERED IV VANCO PER PHARMACY. REPORTS GEN -12/27 ALLOVER PAIN & DISCOMFORT INCLUDING RAC. PAIN MANAGED WELL W/OXYCODONE, TORADOL & TYLENOL. PT VOIDING VIA PUREWICK. TOLERATING DIET, DENIES N/V. PT ANXIOUS, MEDICATED W/ATARAX. CALL LIGHT IN REACH.
[2024-07-28 07:39] VITALS: BP 136/66
[2024-07-28] MEDS ORDERED: Potassium Chloride 20 MEQ/15 ML UDC PO ONE (07:50)
[2024-07-28] MEDS ORDERED: Metoprolol Tartrate 25 MG Tab PO SCH (09:00)
[2024-07-28] MEDS ORDERED: Aspirin 81 MG TabEC PO SCH (09:00)
[2024-07-28] MEDS ORDERED: Citalopram Hydrobromide 20 MG Tab PO SCH (09:00)
[2024-07-28] MEDS ORDERED: Vancomycin HCL 1,000 MG in NS 250 ML IV SCH (13:00)
[2024-07-28 15:14] VITALS: BP 134/65
--- NOTE | 2024-07-28 17:13 | NUR ---
SHIFT SUMMARY PAIN CONTROLLED PER EMAR. PT REPORTS THAT R ARM IS FEELING BETTER DURING SHIFT. REDNESS REMAINS WITHIN PREVIOUSLY OUTLINED BORDERS. IV ABX INFUSING DURING SHIFT. PT AMBULATING TO RESTROOM WITH 1 ASSIST. TOLERATING DIET WELL. LARGE BRUISING TO R HIP REMAINS UNCHANGED.
--- NOTE | 2024-07-28 17:26 | NUR ---
ASSUMED CARE OF PT AT APROX 1727.
[2024-07-28 19:51] VITALS: BP 153/90
[2024-07-29 04:11] LABS: BASOPHILS ABSOLUTE AUTO 0.01 K/mm3 (0.00-0.23); BASOPHILS PERCENT AUTO 0 % (0-2); EOSINOPHILS PERCENT AUTO 2 % (0-6); Hematocrit 24.6 % (33.0-51.0); Hemoglobin 7.8 g/dL (11.5-16.0); IMMATURE GRAN ABSOLUTE AUTO 0.08 K/mm3 (0.00-0.10); IMMATURE GRAN PERCENT AUTO 1 % (0-1); LYMPHOCYTES PERCENT AUTO 15 % (21-46); MONOCYTES PERCENT AUTO 12 % (4-13); Mean Corpuscular HGB 23.8 pg (26.0-34.0); Mean Corpuscular HGB Conc 31.7 g/dL (31.5-36.5); Mean Corpuscular Volume 75 fL (80-100); NEUTROPHILS ABSOLUTE AUTO 4.32 K/mm3 (1.96-9.15); NEUTROPHILS PERCENT AUTO 71 % (41-73); Platelet Count 259 K/mm3 (150-400); RDW Coefficient Variation 18.6 % (11.7-14.2); RDW Standard Deviation 50.6 fL (35.1-46.3); Red Blood Cell Count 3.28 M/mm3 (3.80-5.20); White Blood Cell Count 6.11 K/mm3 (4.00-11.30)
[2024-07-29 04:41] LABS: Anion Gap 8 mmol/L (3-11); Blood Urea Nitrogen 10 mg/dL (8-24); CO2, Blood 31 mmol/L (21-32); Chloride, Blood 105 mmol/L (98-108); Creatinine, Blood 0.56 mg/dL (0.40-1.00); Glomerular Filtration Rate 101 (60-); Glucose, Blood 116 mg/dL (70-99); Potassium, Blood 3.5 mmol/L (3.5-5.5); Sodium, Blood 140 mmol/L (136-145); Vancomycin, Trough 16.3 ug/mL (5.0-10.0)
--- NOTE | 2024-07-29 05:16 | NUR ---
SHIFT SUMMARY AOX4. VSS. SPO2 >90% ON RA WHILE AWAKE. SATS DID DROP TO 87% & MAINTAINED WHILE ASLEEP, 2L O2 PLACED & SPO2 >90%. DENIES N/V & DYSPNEA. REPORTS R ARM PAIN & R HIP PAIN, MEDICATED PER EMAR ORDERS. RAC REDNESS HAS DECREASED FROM PREVIOUS NIGHT, LESS TENDER & LESS FIRM WELL. PT HAS FULL ROM WITH R ARM, CAP REFILL <3 SEC, STRONG RADIAL PULSE. HAS BEEN UP TO RESTROOM 1 ASSIST TO VOID MULTx. REPORTS FEELING CONSTIPATED, COURTNEY Little ORDERED BOWEL CARE MEDS TO START 07/29. PT ANXIOUS & WORRIED ABOUT HEALTH, ANXIETY MANAGED WELL W/ATARAX. CALL LIGHT IN REACH.
[2024-07-29 05:18] VITALS: BP 144/66
[2024-07-29 07:38] VITALS: BP 173/81
[2024-07-29] MEDS ORDERED: Polyethylene Glycol 3350 17 gm PO SCH (09:00)
[2024-07-29] MEDS ORDERED: Docusate Sodium 100 MG Cap PO SCH (09:00)
--- NOTE | 2024-07-29 17:14 | NUR ---
SHIFT SUMMARY S/P RAC CELLULITIS, A/OX4, VSS, TOLERATING PO, AMBULATES TO THE BATHROOM WITH SBA, MEDICATED FOR PAIN PER EMAR, ICE PACK GIVEN FOR RAC PAIN. IV ABX PER ORDER, MULTIPLE BM'S THIS SHIFT, NO ACUTE EVENTS THIS SHIFT, CALL LIGTH IN REACH.
[2024-07-29 19:46] VITALS: BP 150/73
--- NOTE | 2024-07-29 21:43 | NUR ---
REPORT GIVEN TO LAVONNE Vargas RN, NO DISTRESS NOTED AT TIME OF REPORT
[2024-07-30 04:15] VITALS: BP 143/68
--- NOTE | 2024-07-30 04:47 | NUR ---
SHIFT SUMMARY VSS. PT SLEPT ON AND OFF T/O THE NIGHT. RLE REMAINS SEVERELY BRUISED, ROM REMAINS INTACT. SENSATION AND CIRCULATION REMAINS INTACT. RUE REMAINS RED AND INFLAMMED. REDDNESS NOTED TO EXTEND OUTSIDE OF ORIGINAL OUTLINE, BUT THE REDDNESS IS VERY LIGHT. SWELLING TO THE GENERAL AREA HAS IMPROVED. THE INSIDE OF THE PATIENTS ELBOW REMAINS FIRM, BUT PT ENDORSES THAT IT HAS IMPROVED SINCE ADMISSION. PT HAS BEEN MEDICATED FOR PAIN PER EMAR W/ GOOD RESULTS. PT AMBULATING TO THE BATHROOM W/MIN ASSIST. TOLLERATING PO INTAKE W/O N/V. OVERALL NO ACUTE EVENTS NOTED T/O THE NIGHT. PLAN TO CONTINUE IV ABX AND AWAIT ECHO RESULTS.
[2024-07-30 05:34] LABS: BASOPHILS ABSOLUTE AUTO 0.02 K/mm3 (0.00-0.23); BASOPHILS PERCENT AUTO 0 % (0-2); EOSINOPHILS ABSOLUTE AUTO 0.12 K/mm3 (0.00-0.68); EOSINOPHILS PERCENT AUTO 2 % (0-6); Hematocrit 23.7 % (33.0-51.0); Hemoglobin 7.4 g/dL (11.5-16.0); IMMATURE GRAN ABSOLUTE AUTO 0.19 K/mm3 (0.00-0.10); IMMATURE GRAN PERCENT AUTO 3 % (0-1); LYMPHOCYTES ABSOLUTE AUTO 1.27 K/mm3 (0.84-5.20); LYMPHOCYTES PERCENT AUTO 22 % (21-46); MONOCYTES ABSOLUTE AUTO 0.68 K/mm3 (0.16-1.47); MONOCYTES PERCENT AUTO 12 % (4-13); Mean Corpuscular HGB 23.4 pg (26.0-34.0); Mean Corpuscular HGB Conc 31.2 g/dL (31.5-36.5); Mean Corpuscular Volume 75 fL (80-100); Mean Platelet Volume 9.8 fL (9.1-12.4); NEUTROPHILS PERCENT AUTO 61 % (41-73); NRBC ABSOLUTE 0.04 K/mm3 (0.00-0.02); NRBC Auto 0.7 /100 WBC (0.0-0.2); Platelet Count 261 K/mm3 (150-400); RDW Coefficient Variation 18.7 % (11.7-14.2); Red Blood Cell Count 3.16 M/mm3 (3.80-5.20); White Blood Cell Count 5.88 K/mm3 (4.00-11.30)
[2024-07-30 05:58] LABS: Calcium, Blood 8.8 mg/dL (8.5-10.1); Creatinine, Blood 0.47 mg/dL (0.40-1.00); Potassium, Blood 3.2 mmol/L (3.5-5.5)
[2024-07-30 07:47] VITALS: BP 155/75
--- NOTE | 2024-07-30 11:48 | NUR ---
DR DOHERTY IN TO SEE PT.
--- NOTE | 2024-07-30 11:55 | NUR ---
NOTIFIED DR REGALADO' OFFICE OF PT'S ADMISSION TO HOSPITAL NOTIFIED OFFICE THAT PT WILL BE UNABLE TO MAKE FOLLOW UP APPOINTMENT ON 08/01 DUE TO ADMISSION TO HOSPITAL.
[2024-07-30 11:59] VITALS: BP 134/67
[2024-07-30] MEDS ORDERED: Sod Ferric Gluc Complx/Sucrose 125 MG in NS 100 ML IV SCH (12:00)
[2024-07-30 14:56] VITALS: BP 161/73
--- NOTE | 2024-07-30 18:05 | NUR ---
SUMMARY NO ACUTE CHANGES TO SHIFT. PT REC'D ABX PER ORDERS WELL IV IRON INFUSION. PT WORKED WITH PT AND OT. HAS GOTTEN UP MULTIPLE TIMES W/FWW TO RESTROOM. FAMILY AT BEDSIDE. PT PLEASANT AND COOPERATIVE. CALL LIGHT IN REACH.
[2024-07-30 19:29] VITALS: BP 150/66
[2024-07-30 22:58] VITALS: BP 158/72
[2024-07-31 04:48] VITALS: BP 128/64
[2024-07-31 05:29] LABS: Hematocrit 25.2 % (33.0-51.0); Hemoglobin 7.9 g/dL (11.5-16.0); Mean Corpuscular HGB 23.5 pg (26.0-34.0); Mean Corpuscular HGB Conc 31.3 g/dL (31.5-36.5); Mean Corpuscular Volume 75 fL (80-100); NRBC ABSOLUTE 0.06 K/mm3 (0.00-0.02); NRBC Auto 0.9 /100 WBC (0.0-0.2); Platelet Count 309 K/mm3 (150-400); RDW Coefficient Variation 19.1 % (11.7-14.2); RDW Standard Deviation 50.6 fL (35.1-46.3); Red Blood Cell Count 3.36 M/mm3 (3.80-5.20); White Blood Cell Count 6.88 K/mm3 (4.00-11.30)
[2024-07-31 05:50] LABS: BAND PERCENT MAN 7 % (0-8); BASOPHILS PERCENT MAN 0 % (0-2); EOSINOPHILS ABSOLUTE MAN 0.41 K/mm3 (0.00-0.68); EOSINOPHILS PERCENT MAN 6 % (0-6); LYMPHOCYTES ABSOLUTE MAN 0.61 K/mm3 (0.84-5.20); LYMPHOCYTES PERCENT MAN 9 % (21-46); METAMYELOCYTE ABSOLUTE MAN 0.06 K/mm3 (0.00-0.00); METAMYELOCYTE PERCENT MAN 1 % (0-0); MONOCYTES ABSOLUTE MAN 0.75 K/mm3 (0.16-1.47); MONOCYTES PERCENT MAN 11 % (4-13); NEUTROPHILS ABSOLUTE MAN 5.02 K/mm3 (1.96-9.15); SEG NEUTROPHILS PERCENT MAN 66 % (41-73); TOTAL CELLS COUNTED 100
--- NOTE | 2024-07-31 06:02 | NUR ---
SHIFT SUMMARY NOC PT A/O X 4. PLEASANT AND COOPERATIVE WITH CARE. VSS. ELIZABETH STILL RED AND WARM TO TOUCH, BUT DECREASING FROM BORDERS. R HIP FX REPAIR INCISIONS X 3 CLEANED AND REDRESSED WITH AQUACEL AND C/D/I. PT SBA/FWW TO BATHROOM, AND IS VOIDING AND HAVING BM. ON TELE SINUS RHYTHM IN 70'S. PT ON RA SPO2 >95%. RUE/R HIP PAIN BEING MANAGED PER EMAR. IV ABX CONTINUE. HGB 7.9 THIS AM, AND POTASSIUM 3.2 YESTERDAY, HOSPITALIST NOTIFIED AND PT HOME DOSE KCL 20 MEQ ELIXER RESTARTED FOR AM. PT ON CONTACT ISOLATION FOR MRSA RUE. PT CURRENTLY RESTING WITH BED IN LOWEST POSITION, AND CALL LIGHT WITHIN REACH.
[2024-07-31 06:05] LABS: Bun/Creatinine Ratio 11.8 (12.0-20.0); Calcium, Blood 8.8 mg/dL (8.5-10.1); Creatinine, Blood 0.51 mg/dL (0.40-1.00); Potassium, Blood 3.3 mmol/L (3.5-5.5)
[2024-07-31 07:45] VITALS: BP 147/72
[2024-07-31] MEDS ORDERED: Potassium Chloride 20 MEQ/15 ML UDC PO SCH ×2 (09:00→17:00)
[2024-07-31] MEDS ORDERED: Potassium Chloride 10 Meq Tablet SA PO SCH (09:00)
--- NOTE | 2024-07-31 10:03 | NUR ---
DR DOHERTY IN TO SEE PT.
[2024-07-31] MEDS ORDERED: Ketorolac Tromethamine 15mg Vial IV PRN (10:25)
[2024-07-31] MEDS ORDERED: Enoxaparin 40 MG/0.4 ML SYR SC SCH (11:00)
--- NOTE | 2024-07-31 11:56 | NUR ---
Pt. is awake and sitting up in a recliner when she welcomes my visit. Pt. is pleasant. Facilitate a life review and listen with emapthy and interest. Pt. verbalizes about her journey back and forth between the hospital and rehab facility. Pt. verbalizes that she has received excellent care, but she is ready to have the OLEG clear out so she can go home. Pt. fights off tears as she considers home. Listen with a pastoral resence. Pt. displays evidence of being aware, engaged, and thankful. Prayed with the Pt. Pt. verbalized gratitude for the spiritual care visit and welcomed this bilingual branch manager to return.
[2024-07-31] MEDS ORDERED: DAPTOmycin 500 MG in NS 50 ML IV SCH (12:00)
--- NOTE | 2024-07-31 12:43 | NUR ---
TURNED OVER CARE TO ARIANA Decker RN.
--- NOTE | 2024-07-31 12:45 | NUR ---
ASSUMED CARE OF PT, REPORT FROM JOSSE DALEY, PT RESTING COMFORTABLY IN RECLINER W/ CALL LIGHT IN REACH.
[2024-07-31 15:26] VITALS: BP 148/73
--- NOTE | 2024-07-31 19:20 | NUR ---
SHIFT SUMMARY PT IS ALERT, RESPONSIVE, AMBULATING SBA W/ FWW AND GB. NO ACUTE CHANGES SINCE ASSUMPTION OF CARE THIS AFTERNOON. R AC AREA IS RED AND SWOLLEN BUT HAS NOT INCREASED, REDNESS STILL WITHIN MARKED MARGINS. DRESSINGS TO R LEG C/D/I. CAP REFILL TO R TOES 2 SECS AND PT IS ABLE TO WIGGLE TOES, DENIES N/T. TELE IN PLACE, PT IN SINUS RHYTHM W/ NO TELE EVENTS DURING MY CARE OF THIS PT. VSS. PT WILL BE NPO @ 0000 FOR NICK, PT AWARE. PT MEDICATED FOR PAIN, PAIN IS TOLERABLE. REPORT TO ONCOMING NURSE JANIYA, PT RESTING IN RECLINER W/ CALL LIGHT IN REACH.
[2024-07-31 19:29] VITALS: BP 175/74
[2024-08-01] VITALS (10 sets, daily range): BP systolic 130–175; BP diastolic 57–89
[2024-08-01 05:24] LABS: Hemoglobin 7.9 g/dL (11.5-16.0); Mean Corpuscular HGB Conc 31.6 g/dL (31.5-36.5); Mean Corpuscular Volume 76 fL (80-100); Mean Platelet Volume 9.9 fL (9.1-12.4); NRBC ABSOLUTE 0.05 K/mm3 (0.00-0.02); NRBC Auto 0.8 /100 WBC (0.0-0.2); Platelet Count 335 K/mm3 (150-400); RDW Coefficient Variation 20.3 % (11.7-14.2); RDW Standard Deviation 52.1 fL (35.1-46.3); Red Blood Cell Count 3.29 M/mm3 (3.80-5.20); White Blood Cell Count 6.24 K/mm3 (4.00-11.30)
--- NOTE | 2024-08-01 05:43 | NUR ---
SHIFT SUMMARY S/P R AC CELLULITIS. NO ACUTE CHANGES OVERNIGHT. VSS, NO TELE EVENTS THIS SHIFT. NPO SINCE MIDNIGHT IN ANTICIPATION OF NICK LATER TODAY. CELLULITIS TO RUE REMAINS WITHIN OUTLINED MARGINS, RED & [id number]; PT REPORTS PAIN DECREASING. PUSTULE SITE DRAINING MIN AMOUNTS OF SEROUS FLUID. AQUACEL x3 TO R HIP C/D/I R/T HIP SURG ON 07.19.24. PT REPORTS PAIN TOLERABLE, MEDICATED PER EMAR. PT AMBULATES USING FWW c SBA. VOIDING. CALL LIGHT IN REACH, BED IN LOWEST POSITION, WILL REPORT TO DAY RN.
[2024-08-01 05:48] LABS: BAND PERCENT MAN 3 % (0-8); BASOPHILS PERCENT MAN 0 % (0-2); EOSINOPHILS ABSOLUTE MAN 0.06 K/mm3 (0.00-0.68); EOSINOPHILS PERCENT MAN 1 % (0-6); LYMPHOCYTES ABSOLUTE MAN 0.93 K/mm3 (0.84-5.20); LYMPHOCYTES PERCENT MAN 15 % (21-46); METAMYELOCYTE ABSOLUTE MAN 0.06 K/mm3 (0.00-0.00); METAMYELOCYTE PERCENT MAN 1 % (0-0); MONOCYTES ABSOLUTE MAN 0.24 K/mm3 (0.16-1.47); MONOCYTES PERCENT MAN 4 % (4-13); MYELOCYTE ABSOLUTE MAN 0.12 K/mm3 (0.00-0.00); MYELOCYTE PERCENT MAN 2 % (0-0); SEG NEUTROPHILS PERCENT MAN 74 % (41-73); TOTAL CELLS COUNTED 100
[2024-08-01 05:54] LABS: Bun/Creatinine Ratio 12.3 (12.0-20.0); Calcium, Blood 9.2 mg/dL (8.5-10.1); Creatinine, Blood 0.57 mg/dL (0.40-1.00); Potassium, Blood 3.3 mmol/L (3.5-5.5)
[2024-08-01] MEDS ORDERED: Benzocaine Oral Spray 0.5ML UD ONE (12:58)
[2024-08-01] MEDS ORDERED: NS 1,000 ML IV ONE (12:59)
--- NOTE | 2024-08-01 13:34 | NUR ---
SEDATION FOR NICK, AWAKENING BACK TO STABLE VS, RASS NOW 0, BP IMPROVED, O2 NOW 91% ROOM AIR, FROM MASK AT 15 L PRIOR AND BP 137/69 AT PRESENT, ALERT/ORIENTED X 3, PLAN TRANSFER BACK TO FLOOR.
--- NOTE | 2024-08-01 14:07 | NUR ---
PT BACK FROM PROCEDURE. RESTING IN BED, ABLE TO STAND AND TRANSFER. NO PAIN, NO NAUSEA.
--- NOTE | 2024-08-01 17:06 | NUR ---
SHIFT SUMMARY PAIN CONTROLLED WELL PER EMAR. PT UP AND AMBULATING TO RESTROOM WITH WALKER AND 1 ASSIST. IV ABX INFUSING IN POWERGLIDE. NICK DONE TODAY. PT TOOK A NAP AND FEELS BETTER AFTER ANESTHESIA. TOLERATING DIET WELL. R ARM REMAINS FIRM TO TOUCH BUT REDNESS DECREASED AND WELL WITHIN OUTLINED BORDERS. AQUACELS REMAIN CDI.
[2024-08-01] MEDS ORDERED: Propofol 10mg/ml 20 ml Vial (Procedural) IV ONE (17:09)
[2024-08-02 04:04] VITALS: BP 158/69
--- NOTE | 2024-08-02 05:44 | NUR ---
SHIFT SUMMARY S/P R AC CELLULITIS. NO ACUTE CHANGES OVERNIGHT. VSS, NO TELE EVENTS THIS SHIFT. TOLERATING REGULAR DIET. CELLULITIS TO RUE REMAINS WITHIN OUTLINED MARGINS, RED & [id number]. AQUACEL x3 TO R HIP C/D/I R/T HIP SURG ON 07.19.24. PT REPORTS PAIN TOLERABLE, MEDICATED PER EMAR. PT AMBULATES USING FWW c SBA. VOIDING. ANTICIPATED DISCHARGE HOME LATER TODAY. CALL LIGHT IN REACH, BED IN LOWEST POSITION, WILL REPORT TO DAY RN.
[2024-08-02 07:38] VITALS: BP 175/79
[2024-08-02 11:17] VITALS: BP 143/64
[2024-08-02] MEDS ORDERED: Percocet 5-3251 EACH PO ×2 (11:48)
[2024-08-02] MEDS ORDERED: IBUP800 PO ×2 (11:50)
[2024-08-02] MEDS ORDERED: CUBICIN RF500 M1 IV ×2 (11:52)
--- NOTE | 2024-08-02 12:20 | NUR ---
TELE BOX RETURNED TO PCU.
--- NOTE | 2024-08-02 13:43 | NUR ---
DISCHARGE PT EDUCATED ON AND RECEIVED PRINTED DISCHARGE INSTRUCTIONS AND VERBALIZED AND UNDERSTANDING. HARD RX FOR OXYCODONE GIVEN TO PT. PG IV DRESSING CHANGED AND PT SET TO HAVE ABX INFUSION APPT TOMORROW AT [facility]. AQUACEL DRESSINGS TO R HIP REMOVED, CLEANSED, AND LEFT OPEN TO AIR PER [place] ORDERS. PT LEFT WITH ALL PERSONAL BELONGINGS AND TOOK PT HOME.
[2024-08-03] MEDS ORDERED: Apixaban 5 MG Tab PO SCH (09:00)
== END 2024-08-02 13:42 | disposition home or self-care (01) | DRG 812 ==
LOC: ER 18:08 → ERHOLD 18:09 → SURS 23:03 → ERHOLD 23:03 → ER 23:03 → ERHOLD 23:03 → SURS 23:04
PROVIDERS: Student in an Organized Health Care Education/Training Program; ADMIT Internal Medicine
DX: D62 Acute posthemorrhagic anemia (principal); I82.611 Acute embolism and thrombosis of superficial veins of right upper extremity; T80.1XXA Vascular complications following infusion, transfusion and therapeutic injection, initial encounter; E87.6 Hypokalemia; M25.551 Pain in right hip; G89.29 Other chronic pain; I80.8 Phlebitis and thrombophlebitis of other sites; I25.10 Atherosclerotic heart disease of native coronary artery without angina pectoris; E78.5 Hyperlipidemia, unspecified; I10 Essential (primary) hypertension; F32.A Depression, unspecified; K52.832 Lymphocytic colitis; Z95.1 Presence of aortocoronary bypass graft; G25.81 Restless legs syndrome; M79.7 Fibromyalgia; B95.62 Methicillin resistant Staphylococcus aureus infection as the cause of diseases classified elsewhere; Z79.899 Other long term (current) drug therapy; Z79.82 Long term (current) use of aspirin; K21.9 Gastro-esophageal reflux disease without esophagitis; Z90.710 Acquired absence of both cervix and uterus; E86.0 Dehydration; G89.18 Other acute postprocedural pain; Z90.49 Acquired absence of other specified parts of digestive tract; Z98.890 Other specified postprocedural states; Z95.2 Presence of prosthetic heart valve; S70.11XA Contusion of right thigh, initial encounter; Z87.891 Personal history of nicotine dependence; S72.141G Displaced intertrochanteric fracture of right femur, subsequent encounter for closed fracture with delayed healing; W18.30XD Fall on same level, unspecified, subsequent encounter
CPT/HCPCS: 0241U; 36415; 71260; 72192; 76882; 80048; 80053; 80202; 82248; 83605; 83735; 84100; 85025; 85610; 85730; 87040; 87077; 87147; 87186; 93005; 93010; 93306; 93312; 93325; 93971; 94760; 94762; 96361; 96365; 96366; 96367; 96372; 96375; 96376; 97110; 97112; 97116; 97116-CQ; 97161; 97165; 97530; 97530-CQ; 97535; 99284-25; 99285-25; A9270; C1751; G0378; J0696; J0878; J1650; J1885; J2270; J2405; J2704; J2916; J3010; J3370; J7030; J7040; J7050; J7060; Q9967

== ENCOUNTER 2024-08-05 03:49 | Day surgery (SDC) | payer MEDICARE, BC ==
[~2024-08-05 03:49] MED LIST changes: +CUBICIN RF500 M1 IV; +IBUP800 PO
[2024-08-05] MEDS ORDERED: DAPTOmycin 500 MG in NS 50 ML IV SCH (06:00)
[2024-08-05 15:15] VITALS: BP 166/66
== END 2024-08-05 15:53 | disposition home or self-care (01) ==
LOC: ATC 03:49
DX: R78.81 Bacteremia (principal); B95.62 Methicillin resistant Staphylococcus aureus infection as the cause of diseases classified elsewhere; I80.8 Phlebitis and thrombophlebitis of other sites; I10 Essential (primary) hypertension; K21.9 Gastro-esophageal reflux disease without esophagitis; E78.5 Hyperlipidemia, unspecified; I25.10 Atherosclerotic heart disease of native coronary artery without angina pectoris; Z95.1 Presence of aortocoronary bypass graft; Z79.82 Long term (current) use of aspirin; Z79.899 Other long term (current) drug therapy
CPT/HCPCS: 96365; J0878

== ENCOUNTER 2024-08-06 01:29 | Day surgery (SDC) | payer MEDICARE, BC ==
[2024-08-06] MEDS ORDERED: DAPTOmycin 500 MG in NS 50 ML IV SCH (06:00)
[2024-08-06 16:20] VITALS: BP 149/80
== END 2024-08-06 16:40 | disposition home or self-care (01) ==
LOC: ATC 01:29
DX: R78.81 Bacteremia (principal); B95.62 Methicillin resistant Staphylococcus aureus infection as the cause of diseases classified elsewhere; I80.8 Phlebitis and thrombophlebitis of other sites; I10 Essential (primary) hypertension; K21.9 Gastro-esophageal reflux disease without esophagitis; I25.10 Atherosclerotic heart disease of native coronary artery without angina pectoris; Z95.1 Presence of aortocoronary bypass graft; Z79.82 Long term (current) use of aspirin; Z79.899 Other long term (current) drug therapy
CPT/HCPCS: 36415; 80053; 82728; 83540; 83550; 85025; 96365; J0878

== ENCOUNTER 2024-08-07 00:14 | Day surgery (SDC) | payer MEDICARE, BC ==
[2024-08-07] MEDS ORDERED: DAPTOmycin 500 MG in NS 50 ML IV SCH (06:00)
[2024-08-07 16:36] VITALS: BP 135/67
== END 2024-08-07 16:56 | disposition home or self-care (01) ==
LOC: ATC 00:14
DX: R78.81 Bacteremia (principal); B95.62 Methicillin resistant Staphylococcus aureus infection as the cause of diseases classified elsewhere; I80.8 Phlebitis and thrombophlebitis of other sites; I10 Essential (primary) hypertension; K21.9 Gastro-esophageal reflux disease without esophagitis; I25.10 Atherosclerotic heart disease of native coronary artery without angina pectoris; Z95.1 Presence of aortocoronary bypass graft; Z79.82 Long term (current) use of aspirin; Z79.899 Other long term (current) drug therapy
CPT/HCPCS: 96365; J0878

== ENCOUNTER 2024-08-08 00:02 | Day surgery (SDC) | payer MEDICARE, BC ==
[2024-08-08] MEDS ORDERED: DAPTOmycin 500 MG in NS 50 ML IV SCH (06:00)
[2024-08-08 16:22] VITALS: BP 129/66
== END 2024-08-08 16:44 | disposition home or self-care (01) ==
LOC: ATC 00:02
DX: R78.81 Bacteremia (principal); B95.62 Methicillin resistant Staphylococcus aureus infection as the cause of diseases classified elsewhere; I10 Essential (primary) hypertension; I25.10 Atherosclerotic heart disease of native coronary artery without angina pectoris; K21.9 Gastro-esophageal reflux disease without esophagitis; M79.7 Fibromyalgia; E78.5 Hyperlipidemia, unspecified; Z79.82 Long term (current) use of aspirin; Z79.899 Other long term (current) drug therapy; Z90.49 Acquired absence of other specified parts of digestive tract; Z90.710 Acquired absence of both cervix and uterus
CPT/HCPCS: 96365; J0878

== ENCOUNTER 2024-08-09 02:37 | Day surgery (SDC) | payer MEDICARE, BC ==
[2024-08-09] MEDS ORDERED: DAPTOmycin 500 MG in NS 50 ML IV SCH (06:00)
[2024-08-09 16:15] VITALS: BP 148/73
== END 2024-08-09 16:43 | disposition home or self-care (01) ==
LOC: ATC 02:37
DX: R78.81 Bacteremia (principal); B95.62 Methicillin resistant Staphylococcus aureus infection as the cause of diseases classified elsewhere; I10 Essential (primary) hypertension; K21.9 Gastro-esophageal reflux disease without esophagitis; I25.10 Atherosclerotic heart disease of native coronary artery without angina pectoris; M79.7 Fibromyalgia; E78.5 Hyperlipidemia, unspecified; F32.A Depression, unspecified; Z79.82 Long term (current) use of aspirin; Z79.899 Other long term (current) drug therapy; Z90.49 Acquired absence of other specified parts of digestive tract; Z90.710 Acquired absence of both cervix and uterus
CPT/HCPCS: 96374; J0878

== ENCOUNTER 2024-08-10 03:38 | Day surgery (SDC) | payer MEDICARE, BC ==
[2024-08-10] MEDS ORDERED: DAPTOmycin 500 MG in NS 50 ML IV SCH (06:00)
[2024-08-10 16:42] VITALS: BP 122/65
== END 2024-08-10 17:04 | disposition home or self-care (01) ==
LOC: ATC 03:38
DX: R78.81 Bacteremia (principal); B95.62 Methicillin resistant Staphylococcus aureus infection as the cause of diseases classified elsewhere; I10 Essential (primary) hypertension; I25.10 Atherosclerotic heart disease of native coronary artery without angina pectoris; K21.9 Gastro-esophageal reflux disease without esophagitis; M79.7 Fibromyalgia; Z79.82 Long term (current) use of aspirin; Z79.899 Other long term (current) drug therapy; Z90.49 Acquired absence of other specified parts of digestive tract; Z90.710 Acquired absence of both cervix and uterus
CPT/HCPCS: 96365; J0878

== ENCOUNTER 2024-08-11 13:18 | Day surgery (SDC) | payer MEDICARE, BC ==
[~2024-08-11 13:18] MED LIST changes: +DAPTOmycin 500 MG in NS 50 ML IV SCH
[2024-08-11 13:47] VITALS: BP 133/68
== END 2024-08-11 14:10 | disposition home or self-care (01) ==
LOC: ATC 13:18
DX: R78.81 Bacteremia (principal); B95.62 Methicillin resistant Staphylococcus aureus infection as the cause of diseases classified elsewhere; I10 Essential (primary) hypertension; K21.9 Gastro-esophageal reflux disease without esophagitis; M79.7 Fibromyalgia; I25.10 Atherosclerotic heart disease of native coronary artery without angina pectoris; E78.5 Hyperlipidemia, unspecified; Z79.82 Long term (current) use of aspirin; Z79.899 Other long term (current) drug therapy; Z95.1 Presence of aortocoronary bypass graft; Z90.49 Acquired absence of other specified parts of digestive tract; Z90.710 Acquired absence of both cervix and uterus
CPT/HCPCS: 96365; J0878

== ENCOUNTER 2024-08-12 00:33 | Day surgery (SDC) | payer MEDICARE, BC ==
[~2024-08-12 00:33] MED LIST changes: -DAPTOmycin 500 MG in NS 50 ML IV SCH
[2024-08-12] MEDS ORDERED: DAPTOmycin 500 MG in NS 50 ML IV SCH (06:00)
[2024-08-12 14:58] VITALS: BP 154/70
== END 2024-08-12 15:29 | disposition home or self-care (01) ==
LOC: ATC 00:33
DX: R78.81 Bacteremia (principal); B95.62 Methicillin resistant Staphylococcus aureus infection as the cause of diseases classified elsewhere; I10 Essential (primary) hypertension; I25.10 Atherosclerotic heart disease of native coronary artery without angina pectoris; M79.7 Fibromyalgia; E78.5 Hyperlipidemia, unspecified; K21.9 Gastro-esophageal reflux disease without esophagitis; Z79.82 Long term (current) use of aspirin; Z79.899 Other long term (current) drug therapy; Z90.49 Acquired absence of other specified parts of digestive tract; Z90.710 Acquired absence of both cervix and uterus
CPT/HCPCS: 96365; J0878

== ENCOUNTER 2024-08-13 01:15 | Day surgery (SDC) | payer MEDICARE, BC ==
[2024-08-13] MEDS ORDERED: DAPTOmycin 500 MG in NS 50 ML IV SCH (06:00)
[2024-08-13 17:09] VITALS: BP 140/77
== END 2024-08-13 17:27 | disposition home or self-care (01) ==
LOC: ATC 01:15
DX: R78.81 Bacteremia (principal); B95.62 Methicillin resistant Staphylococcus aureus infection as the cause of diseases classified elsewhere; I10 Essential (primary) hypertension; K21.9 Gastro-esophageal reflux disease without esophagitis; I25.10 Atherosclerotic heart disease of native coronary artery without angina pectoris; M79.7 Fibromyalgia; E78.5 Hyperlipidemia, unspecified; Z95.1 Presence of aortocoronary bypass graft; Z79.82 Long term (current) use of aspirin; Z79.899 Other long term (current) drug therapy; Z90.49 Acquired absence of other specified parts of digestive tract; Z90.710 Acquired absence of both cervix and uterus
CPT/HCPCS: 96365; J0878

== ENCOUNTER 2024-08-14 00:08 | Day surgery (SDC) | payer MEDICARE, BC ==
[2024-08-14] MEDS ORDERED: DAPTOmycin 500 MG in NS 50 ML IV SCH (06:00)
[2024-08-14 16:23] VITALS: BP 130/70
== END 2024-08-14 16:45 | disposition home or self-care (01) ==
LOC: ATC 00:08
DX: R78.81 Bacteremia (principal); B95.62 Methicillin resistant Staphylococcus aureus infection as the cause of diseases classified elsewhere; I25.10 Atherosclerotic heart disease of native coronary artery without angina pectoris; M79.7 Fibromyalgia; K21.9 Gastro-esophageal reflux disease without esophagitis; E78.5 Hyperlipidemia, unspecified; I10 Essential (primary) hypertension; Z95.1 Presence of aortocoronary bypass graft; Z79.82 Long term (current) use of aspirin; Z79.899 Other long term (current) drug therapy; Z90.49 Acquired absence of other specified parts of digestive tract; Z90.710 Acquired absence of both cervix and uterus
CPT/HCPCS: 96365; J0878

== ENCOUNTER 2024-08-15 01:43 | Day surgery (SDC) | payer MEDICARE, BC ==
[2024-08-15] MEDS ORDERED: DAPTOmycin 500 MG in NS 50 ML IV SCH (06:00)
[2024-08-15 16:08] VITALS: BP 155/87
== END 2024-08-15 16:38 | disposition home or self-care (01) ==
LOC: ATC 01:43
DX: R78.81 Bacteremia (principal); B95.62 Methicillin resistant Staphylococcus aureus infection as the cause of diseases classified elsewhere; I10 Essential (primary) hypertension; I25.10 Atherosclerotic heart disease of native coronary artery without angina pectoris; K21.9 Gastro-esophageal reflux disease without esophagitis; M79.7 Fibromyalgia; E78.5 Hyperlipidemia, unspecified; Z95.1 Presence of aortocoronary bypass graft; Z79.82 Long term (current) use of aspirin; Z79.899 Other long term (current) drug therapy; Z90.49 Acquired absence of other specified parts of digestive tract; Z90.710 Acquired absence of both cervix and uterus
CPT/HCPCS: 96365; J0878

== ENCOUNTER 2024-08-16 01:21 | Day surgery (SDC) | payer MEDICARE, BC ==
[~2024-08-16] VITALS: Ht 167.6 cm; Wt 86.6 kg
[2024-08-16] MEDS ORDERED: DAPTOmycin 500 MG in NS 50 ML IV SCH (06:00)
[2024-08-16] MEDS ORDERED: DAPTOmycin 700 MG in NS 50 ML IV SCH (07:05)
[2024-08-16 13:24] VITALS: BP 133/82
[2024-08-16 14:28] LABS: BASOPHILS ABSOLUTE AUTO 0.02 K/mm3 (0.00-0.23); BASOPHILS PERCENT AUTO 0 % (0-2); EOSINOPHILS ABSOLUTE AUTO 0.31 K/mm3 (0.00-0.68); EOSINOPHILS PERCENT AUTO 6 % (0-6); Hematocrit 35.6 % (33.0-51.0); Hemoglobin 11.1 g/dL (11.5-16.0); IMMATURE GRAN ABSOLUTE AUTO 0.01 K/mm3 (0.00-0.10); IMMATURE GRAN PERCENT AUTO 0 % (0-1); LYMPHOCYTES ABSOLUTE AUTO 0.73 K/mm3 (0.84-5.20); LYMPHOCYTES PERCENT AUTO 15 % (21-46); MONOCYTES ABSOLUTE AUTO 0.43 K/mm3 (0.16-1.47); MONOCYTES PERCENT AUTO 9 % (4-13); Mean Corpuscular HGB 25.3 pg (26.0-34.0); Mean Corpuscular HGB Conc 31.2 g/dL (31.5-36.5); Mean Corpuscular Volume 81 fL (80-100); Mean Platelet Volume 9.5 fL (9.1-12.4); NEUTROPHILS ABSOLUTE AUTO 3.45 K/mm3 (1.96-9.15); NEUTROPHILS PERCENT AUTO 70 % (41-73); Platelet Count 283 K/mm3 (150-400); RDW Coefficient Variation 22.1 % (11.7-14.2); RDW Standard Deviation 64.7 fL (35.1-46.3); Red Blood Cell Count 4.39 M/mm3 (3.80-5.20); White Blood Cell Count 4.95 K/mm3 (4.00-11.30)
[2024-08-16 14:56] LABS: C-REACTIVE PROTEIN, EXT RANGE <0.290 mg/dL (0.000-0.300)
[2024-08-16 15:14] LABS: Alanine Aminotransfer (ALT/SGP 21 U/L (12-78); Albumin, Blood 3.2 g/dL (3.4-5.0); Albumin/Globulin Ratio 0.8 (0.8-1.8); Alk Phos 114 U/L (50-136); Anion Gap 14 mmol/L (3-11); Aspartate Aminotrans (AST/SGOT 16 U/L (12-37); Bilirubin, Total 0.6 mg/dL (0.1-1.0); Blood Urea Nitrogen 20 mg/dL (8-24); Bun/Creatinine Ratio 30.7 (12.0-20.0); CO2, Blood 25 mmol/L (21-32); Calcium, Blood 9.7 mg/dL (8.5-10.1); Chloride, Blood 104 mmol/L (98-108); Creatinine, Blood 0.65 mg/dL (0.40-1.00); Globulin, Blood 4.1 g/dL (2.2-4.0); Glomerular Filtration Rate 97 (60-); Glucose, Blood 119 mg/dL (70-99); Potassium, Blood 3.9 mmol/L (3.5-5.5); Sodium, Blood 139 mmol/L (136-145); Total Protein, Blood 7.3 g/dL (6.4-8.2)
[2024-08-17] MEDS ORDERED: RIFA300 PO (13:20)
== END 2024-08-16 14:02 | disposition home or self-care (01) ==
LOC: ATC 01:21
PROVIDERS: Internal Medicine Infectious Disease
DX: R78.81 Bacteremia (principal); B95.62 Methicillin resistant Staphylococcus aureus infection as the cause of diseases classified elsewhere; I10 Essential (primary) hypertension; I25.10 Atherosclerotic heart disease of native coronary artery without angina pectoris; K21.9 Gastro-esophageal reflux disease without esophagitis; Z79.82 Long term (current) use of aspirin; Z79.899 Other long term (current) drug therapy
CPT/HCPCS: 80053; 82550; 85025; 85651; 86140; 96365; C1751; J0878

== ENCOUNTER 2024-08-17 02:03 | Day surgery (SDC) | payer MEDICARE, BC ==
[2024-08-17] MEDS ORDERED: DAPTOmycin 700 MG in NS 50 ML IV SCH (06:00)
[2024-08-17 13:08] VITALS: BP 151/68
[2024-08-17] MEDS ORDERED: RIFA300 PO (13:20)
== END 2024-08-17 13:40 | disposition home or self-care (01) ==
LOC: ATC 02:03
DX: R78.81 Bacteremia (principal); B95.62 Methicillin resistant Staphylococcus aureus infection as the cause of diseases classified elsewhere; Z87.891 Personal history of nicotine dependence; Z79.82 Long term (current) use of aspirin; Z79.899 Other long term (current) drug therapy
CPT/HCPCS: 96365; J0878

== ENCOUNTER 2024-08-18 02:56 | Day surgery (SDC) | payer MEDICARE, BC ==
[~2024-08-18 02:56] MED LIST changes: +RIFA300 PO
[2024-08-18] MEDS ORDERED: DAPTOmycin 700 MG in NS 50 ML IV SCH (06:00)
[2024-08-18 13:32] VITALS: BP 151/71
== END 2024-08-18 13:52 | disposition home or self-care (01) ==
LOC: ATC 02:56
DX: R78.81 Bacteremia (principal); B95.62 Methicillin resistant Staphylococcus aureus infection as the cause of diseases classified elsewhere; Z87.891 Personal history of nicotine dependence; Z79.899 Other long term (current) drug therapy
CPT/HCPCS: 96365; J0878

== ENCOUNTER 2024-08-19 13:09 | Day surgery (SDC) | payer MEDICARE, BC ==
[~2024-08-19 13:09] MED LIST changes: +DAPTOmycin 700 MG in NS 50 ML IV SCH
[2024-08-19 13:27] VITALS: BP 155/90
== END 2024-08-19 13:43 | disposition home or self-care (01) ==
LOC: ATC 13:09
DX: R78.81 Bacteremia (principal); B95.62 Methicillin resistant Staphylococcus aureus infection as the cause of diseases classified elsewhere; Z87.891 Personal history of nicotine dependence
CPT/HCPCS: 96365; J0878

== ENCOUNTER 2024-08-20 02:16 | Day surgery (SDC) | payer MEDICARE, BC ==
[~2024-08-20 02:16] MED LIST changes: -DAPTOmycin 700 MG in NS 50 ML IV SCH
[2024-08-20] MEDS ORDERED: DAPTOmycin 700 MG in NS 50 ML IV SCH (06:00)
[2024-08-20 16:16] VITALS: BP 147/80
== END 2024-08-20 16:40 | disposition home or self-care (01) ==
LOC: ATC 02:16
DX: R78.81 Bacteremia (principal); B95.62 Methicillin resistant Staphylococcus aureus infection as the cause of diseases classified elsewhere; Z87.891 Personal history of nicotine dependence; Z79.899 Other long term (current) drug therapy
CPT/HCPCS: 96365; J0878

== ENCOUNTER 2024-08-21 00:35 | Day surgery (SDC) | payer MEDICARE, BC ==
[2024-08-21] MEDS ORDERED: DAPTOmycin 600 MG in NS 50 ML IV SCH (06:00)
[2024-08-21 13:40] VITALS: BP 147/81
== END 2024-08-21 13:59 | disposition home or self-care (01) ==
LOC: ATC 00:35
DX: R78.81 Bacteremia (principal); B95.62 Methicillin resistant Staphylococcus aureus infection as the cause of diseases classified elsewhere; I80.8 Phlebitis and thrombophlebitis of other sites; Z87.891 Personal history of nicotine dependence
CPT/HCPCS: 96365; J0878

== ENCOUNTER 2024-08-22 01:06 | Day surgery (SDC) | payer MEDICARE, BC ==
[2024-08-22] MEDS ORDERED: DAPTOmycin 600 MG in NS 50 ML IV SCH (06:00)
[2024-08-22 16:20] VITALS: BP 163/92
== END 2024-08-22 16:50 | disposition home or self-care (01) ==
LOC: ATC 01:06
DX: R78.81 Bacteremia (principal); B95.62 Methicillin resistant Staphylococcus aureus infection as the cause of diseases classified elsewhere; Z87.891 Personal history of nicotine dependence; M25.551 Pain in right hip; S72.141D Displaced intertrochanteric fracture of right femur, subsequent encounter for closed fracture with routine healing
CPT/HCPCS: 73502; 96365; J0878

== ENCOUNTER 2024-08-23 02:02 | Day surgery (SDC) | payer MEDICARE, BC ==
[2024-08-23] MEDS ORDERED: DAPTOmycin 600 MG in NS 50 ML IV SCH (06:00)
[2024-08-23 13:52] VITALS: BP 155/80
[2024-08-23 14:20] LABS: BASOPHILS ABSOLUTE AUTO 0.04 K/mm3 (0.00-0.23); BASOPHILS PERCENT AUTO 1 % (0-2); EOSINOPHILS ABSOLUTE AUTO 0.44 K/mm3 (0.00-0.68); EOSINOPHILS PERCENT AUTO 10 % (0-6); Hematocrit 38.1 % (33.0-51.0); Hemoglobin 11.9 g/dL (11.5-16.0); IMMATURE GRAN PERCENT AUTO 0 % (0-1); LYMPHOCYTES ABSOLUTE AUTO 1.32 K/mm3 (0.84-5.20); LYMPHOCYTES PERCENT AUTO 31 % (21-46); MONOCYTES ABSOLUTE AUTO 0.51 K/mm3 (0.16-1.47); MONOCYTES PERCENT AUTO 12 % (4-13); Mean Corpuscular HGB 25.4 pg (26.0-34.0); Mean Corpuscular HGB Conc 31.2 g/dL (31.5-36.5); Mean Corpuscular Volume 81 fL (80-100); Mean Platelet Volume 9.6 fL (9.1-12.4); NEUTROPHILS ABSOLUTE AUTO 1.93 K/mm3 (1.96-9.15); NEUTROPHILS PERCENT AUTO 46 % (41-73); Platelet Count 287 K/mm3 (150-400); RDW Coefficient Variation 21.1 % (11.7-14.2); RDW Standard Deviation 61.9 fL (35.1-46.3); Red Blood Cell Count 4.68 M/mm3 (3.80-5.20); White Blood Cell Count 4.24 K/mm3 (4.00-11.30)
[2024-08-23 14:37] LABS: C-REACTIVE PROTEIN, EXT RANGE 0.556 mg/dL (0.000-0.300)
[2024-08-23 14:51] LABS: Albumin, Blood 3.3 g/dL (3.4-5.0); Albumin/Globulin Ratio 0.8 (0.8-1.8); Bilirubin, Total 0.6 mg/dL (0.1-1.0); Bun/Creatinine Ratio 21.9 (12.0-20.0); Calcium, Blood 9.7 mg/dL (8.5-10.1); Creatinine, Blood 0.55 mg/dL (0.40-1.00); Globulin, Blood 4.4 g/dL (2.2-4.0); Potassium, Blood 3.8 mmol/L (3.5-5.5); Total Protein, Blood 7.7 g/dL (6.4-8.2)
== END 2024-08-23 14:38 | disposition home or self-care (01) ==
LOC: ATC 02:02
PROVIDERS: Internal Medicine Infectious Disease
DX: R78.81 Bacteremia (principal); B95.62 Methicillin resistant Staphylococcus aureus infection as the cause of diseases classified elsewhere; I80.8 Phlebitis and thrombophlebitis of other sites; Z87.891 Personal history of nicotine dependence; Z79.899 Other long term (current) drug therapy
CPT/HCPCS: 80053; 82550; 85025; 85651; 86140; 96365; C1751; J0878

== ENCOUNTER 2024-08-24 04:40 | Day surgery (SDC) | payer MEDICARE, BC ==
[2024-08-24] MEDS ORDERED: DAPTOmycin 600 MG in NS 50 ML IV SCH (06:00)
[2024-08-24 13:48] VITALS: BP 168/92
== END 2024-08-24 13:52 | disposition home or self-care (01) ==
LOC: ATC 04:40
DX: R78.81 Bacteremia (principal); B95.62 Methicillin resistant Staphylococcus aureus infection as the cause of diseases classified elsewhere; Z87.891 Personal history of nicotine dependence
CPT/HCPCS: 96365; J0878

== ENCOUNTER 2024-08-25 03:26 | Day surgery (SDC) | payer MEDICARE, BC ==
[2024-08-25] MEDS ORDERED: DAPTOmycin 600 MG in NS 50 ML IV SCH (06:00)
[2024-08-25 13:12] VITALS: BP 160/86
== END 2024-08-25 13:50 | disposition home or self-care (01) ==
LOC: ATC 03:26
DX: R78.81 Bacteremia (principal); B95.62 Methicillin resistant Staphylococcus aureus infection as the cause of diseases classified elsewhere; Z87.891 Personal history of nicotine dependence
CPT/HCPCS: 96365; J0878

== ENCOUNTER 2024-08-26 01:50 | Day surgery (SDC) | payer MEDICARE, BC ==
[2024-08-26] MEDS ORDERED: DAPTOmycin 600 MG in NS 50 ML IV SCH (06:00)
[2024-08-26 13:22] VITALS: BP 163/91
== END 2024-08-26 13:41 | disposition home or self-care (01) ==
LOC: ATC 01:50
DX: R78.81 Bacteremia (principal); B95.62 Methicillin resistant Staphylococcus aureus infection as the cause of diseases classified elsewhere; Z87.891 Personal history of nicotine dependence; Z79.899 Other long term (current) drug therapy
CPT/HCPCS: 96365; J0878

== ENCOUNTER 2024-08-27 02:23 | Day surgery (SDC) | payer MEDICARE, BC ==
[2024-08-27] MEDS ORDERED: DAPTOmycin 600 MG in NS 50 ML IV SCH (06:00)
[2024-08-27 13:20] VITALS: BP 180/87
== END 2024-08-27 13:44 | disposition home or self-care (01) ==
LOC: ATC 02:23
DX: R78.81 Bacteremia (principal); B95.62 Methicillin resistant Staphylococcus aureus infection as the cause of diseases classified elsewhere; I80.8 Phlebitis and thrombophlebitis of other sites; Z87.891 Personal history of nicotine dependence; Z79.82 Long term (current) use of aspirin; Z79.899 Other long term (current) drug therapy
CPT/HCPCS: 96365; J0878

== ENCOUNTER 2024-08-28 03:15 | Day surgery (SDC) | payer MEDICARE, BC ==
[2024-08-28] MEDS ORDERED: DAPTOmycin 600 MG in NS 50 ML IV SCH (06:00)
[2024-08-28 13:23] VITALS: BP 176/79
== END 2024-08-28 13:41 | disposition home or self-care (01) ==
LOC: ATC 03:15
DX: R78.81 Bacteremia (principal); B95.62 Methicillin resistant Staphylococcus aureus infection as the cause of diseases classified elsewhere; I80.8 Phlebitis and thrombophlebitis of other sites; Z87.891 Personal history of nicotine dependence; Z79.82 Long term (current) use of aspirin; Z79.899 Other long term (current) drug therapy
CPT/HCPCS: 96365; J0878

== ENCOUNTER 2024-08-29 02:24 | Day surgery (SDC) | payer MEDICARE, BC ==
[2024-08-29] MEDS ORDERED: DAPTOmycin 600 MG in NS 50 ML IV SCH (06:00)
[2024-08-29 13:29] VITALS: BP 162/100
== END 2024-08-29 13:49 | disposition home or self-care (01) ==
LOC: ATC 02:24
DX: R78.81 Bacteremia (principal); B95.62 Methicillin resistant Staphylococcus aureus infection as the cause of diseases classified elsewhere; I80.8 Phlebitis and thrombophlebitis of other sites; Z87.891 Personal history of nicotine dependence; Z79.899 Other long term (current) drug therapy
CPT/HCPCS: 96365; J0878

== ENCOUNTER 2024-08-30 03:47 | Day surgery (SDC) | payer MEDICARE, BC ==
[2024-08-30] MEDS ORDERED: DAPTOmycin 600 MG in NS 50 ML IV SCH (06:00)
[2024-08-30 13:44] VITALS: BP 154/82
[2024-08-30 14:28] LABS: BASOPHILS ABSOLUTE AUTO 0.03 K/mm3 (0.00-0.23); BASOPHILS PERCENT AUTO 1 % (0-2); EOSINOPHILS ABSOLUTE AUTO 0.33 K/mm3 (0.00-0.68); EOSINOPHILS PERCENT AUTO 7 % (0-6); Hematocrit 38.3 % (33.0-51.0); Hemoglobin 12.3 g/dL (11.5-16.0); IMMATURE GRAN ABSOLUTE AUTO 0.01 K/mm3 (0.00-0.10); IMMATURE GRAN PERCENT AUTO 0 % (0-1); LYMPHOCYTES ABSOLUTE AUTO 1.05 K/mm3 (0.84-5.20); LYMPHOCYTES PERCENT AUTO 23 % (21-46); MONOCYTES ABSOLUTE AUTO 0.45 K/mm3 (0.16-1.47); MONOCYTES PERCENT AUTO 10 % (4-13); Mean Corpuscular HGB 25.8 pg (26.0-34.0); Mean Corpuscular HGB Conc 32.1 g/dL (31.5-36.5); Mean Corpuscular Volume 80 fL (80-100); Mean Platelet Volume 9.5 fL (9.1-12.4); NEUTROPHILS ABSOLUTE AUTO 2.69 K/mm3 (1.96-9.15); NEUTROPHILS PERCENT AUTO 59 % (41-73); Platelet Count 314 K/mm3 (150-400); RDW Standard Deviation 60.3 fL (35.1-46.3); Red Blood Cell Count 4.77 M/mm3 (3.80-5.20); White Blood Cell Count 4.56 K/mm3 (4.00-11.30)
[2024-08-30 14:45] LABS: Albumin, Blood 3.4 g/dL (3.4-5.0); Albumin/Globulin Ratio 0.8 (0.8-1.8); Bilirubin, Total 0.3 mg/dL (0.1-1.0); Bun/Creatinine Ratio 32.3 (12.0-20.0); C-REACTIVE PROTEIN, EXT RANGE 0.388 mg/dL (0.000-0.300); Calcium, Blood 9.7 mg/dL (8.5-10.1); Creatinine, Blood 0.5 mg/dL (0.40-1.00); Globulin, Blood 4.3 g/dL (2.2-4.0); Potassium, Blood 3.7 mmol/L (3.5-5.5); Total Protein, Blood 7.7 g/dL (6.4-8.2)
== END 2024-08-30 14:12 | disposition home or self-care (01) ==
LOC: ATC 03:47
PROVIDERS: Internal Medicine Infectious Disease
DX: R78.81 Bacteremia (principal); B95.62 Methicillin resistant Staphylococcus aureus infection as the cause of diseases classified elsewhere; Z87.891 Personal history of nicotine dependence; Z79.899 Other long term (current) drug therapy
CPT/HCPCS: 80053; 82550; 85025; 85651; 86140; 96365; J0878

== ENCOUNTER 2024-08-31 04:39 | Day surgery (SDC) | payer MEDICARE, BC ==
[2024-08-31] MEDS ORDERED: DAPTOmycin 600 MG in NS 50 ML IV SCH (06:00)
[2024-08-31 13:26] VITALS: BP 159/75
== END 2024-08-31 13:52 | disposition home or self-care (01) ==
LOC: ATC 04:39
DX: R78.81 Bacteremia (principal); B95.62 Methicillin resistant Staphylococcus aureus infection as the cause of diseases classified elsewhere; Z87.891 Personal history of nicotine dependence; Z79.899 Other long term (current) drug therapy
CPT/HCPCS: 96365; J0878

== ENCOUNTER 2024-09-01 04:46 | Day surgery (SDC) | payer MEDICARE, BC ==
[2024-09-01] MEDS ORDERED: DAPTOmycin 600 MG in NS 50 ML IV SCH (06:00)
[2024-09-01 13:36] VITALS: BP 155/67
== END 2024-09-01 14:01 | disposition home or self-care (01) ==
LOC: ATC 04:46
DX: R78.81 Bacteremia (principal); B95.62 Methicillin resistant Staphylococcus aureus infection as the cause of diseases classified elsewhere; Z87.891 Personal history of nicotine dependence
CPT/HCPCS: 96365; J0878

== ENCOUNTER 2024-09-02 03:53 | Day surgery (SDC) | payer MEDICARE, BC ==
[2024-09-02] MEDS ORDERED: DAPTOmycin 600 MG in NS 50 ML IV SCH (06:00)
[2024-09-02 13:26] VITALS: BP 174/92
== END 2024-09-02 13:45 | disposition home or self-care (01) ==
LOC: ATC 03:53
DX: R78.81 Bacteremia (principal); B95.62 Methicillin resistant Staphylococcus aureus infection as the cause of diseases classified elsewhere; I80.9 Phlebitis and thrombophlebitis of unspecified site; Z87.891 Personal history of nicotine dependence; Z79.82 Long term (current) use of aspirin; Z79.899 Other long term (current) drug therapy
CPT/HCPCS: 96365; J0878

== ENCOUNTER 2024-09-03 02:16 | Day surgery (SDC) | payer MEDICARE, BC ==
[2024-09-03] MEDS ORDERED: DAPTOmycin 600 MG in NS 50 ML IV SCH (06:00)
[2024-09-03 13:30] VITALS: BP 176/76
== END 2024-09-03 13:51 | disposition home or self-care (01) ==
LOC: ATC 02:16
DX: R78.81 Bacteremia (principal); B95.62 Methicillin resistant Staphylococcus aureus infection as the cause of diseases classified elsewhere; Z87.891 Personal history of nicotine dependence; Z79.899 Other long term (current) drug therapy
CPT/HCPCS: 96365; J0878

== ENCOUNTER 2024-09-04 00:22 | Day surgery (SDC) | payer MEDICARE, BC ==
[2024-09-04] MEDS ORDERED: DAPTOmycin 600 MG in NS 50 ML IV SCH (06:00)
[2024-09-04 13:50] VITALS: BP 162/85
== END 2024-09-04 13:51 | disposition home or self-care (01) ==
LOC: ATC 00:22
DX: R78.81 Bacteremia (principal); B95.62 Methicillin resistant Staphylococcus aureus infection as the cause of diseases classified elsewhere; I80.8 Phlebitis and thrombophlebitis of other sites; Z87.891 Personal history of nicotine dependence; Z79.82 Long term (current) use of aspirin; Z79.899 Other long term (current) drug therapy
CPT/HCPCS: 96365; J0878

== ENCOUNTER 2024-09-05 01:58 | Day surgery (SDC) | payer MEDICARE, BC ==
[2024-09-05] MEDS ORDERED: DAPTOmycin 600 MG in NS 50 ML IV SCH (06:00)
[2024-09-05 13:39] VITALS: BP 171/75
== END 2024-09-05 13:57 | disposition home or self-care (01) ==
LOC: ATC 01:58
DX: R78.81 Bacteremia (principal); B95.62 Methicillin resistant Staphylococcus aureus infection as the cause of diseases classified elsewhere; Z87.891 Personal history of nicotine dependence; Z79.899 Other long term (current) drug therapy
CPT/HCPCS: 96365; J0878

== ENCOUNTER 2024-09-06 01:05 | Day surgery (SDC) | payer MEDICARE, BC ==
[2024-09-06] MEDS ORDERED: DAPTOmycin 600 MG in NS 50 ML IV SCH (06:00)
[2024-09-06 13:20] VITALS: BP 194/84
[2024-09-06 14:12] LABS: BASOPHILS ABSOLUTE AUTO 0.02 K/mm3 (0.00-0.23); BASOPHILS PERCENT AUTO 1 % (0-2); EOSINOPHILS ABSOLUTE AUTO 0.32 K/mm3 (0.00-0.68); EOSINOPHILS PERCENT AUTO 8 % (0-6); Hematocrit 39.5 % (33.0-51.0); Hemoglobin 12.6 g/dL (11.5-16.0); IMMATURE GRAN ABSOLUTE AUTO 0.01 K/mm3 (0.00-0.10); IMMATURE GRAN PERCENT AUTO 0 % (0-1); LYMPHOCYTES ABSOLUTE AUTO 0.77 K/mm3 (0.84-5.20); LYMPHOCYTES PERCENT AUTO 20 % (21-46); MONOCYTES ABSOLUTE AUTO 0.36 K/mm3 (0.16-1.47); MONOCYTES PERCENT AUTO 10 % (4-13); Mean Corpuscular HGB 25.8 pg (26.0-34.0); Mean Corpuscular HGB Conc 31.9 g/dL (31.5-36.5); Mean Corpuscular Volume 81 fL (80-100); Mean Platelet Volume 9.5 fL (9.1-12.4); NEUTROPHILS ABSOLUTE AUTO 2.31 K/mm3 (1.96-9.15); NEUTROPHILS PERCENT AUTO 61 % (41-73); Platelet Count 272 K/mm3 (150-400); RDW Coefficient Variation 20.1 % (11.7-14.2); RDW Standard Deviation 59.1 fL (35.1-46.3); Red Blood Cell Count 4.88 M/mm3 (3.80-5.20); White Blood Cell Count 3.79 K/mm3 (4.00-11.30)
[2024-09-06 14:40] LABS: C-REACTIVE PROTEIN, EXT RANGE <0.290 mg/dL (0.000-0.300)
[2024-09-06 14:44] LABS: Alanine Aminotransfer (ALT/SGP 17 U/L (12-78); Albumin, Blood 3.3 g/dL (3.4-5.0); Albumin/Globulin Ratio 0.8 (0.8-1.8); Alk Phos 94 U/L (50-136); Anion Gap 9 mmol/L (3-11); Aspartate Aminotrans (AST/SGOT 10 U/L (12-37); Bilirubin, Total 0.2 mg/dL (0.1-1.0); Blood Urea Nitrogen 10 mg/dL (8-24); Bun/Creatinine Ratio 18.2 (12.0-20.0); CO2, Blood 27 mmol/L (21-32); Calcium, Blood 9.9 mg/dL (8.5-10.1); Chloride, Blood 104 mmol/L (98-108); Creatinine, Blood 0.55 mg/dL (0.40-1.00); Glomerular Filtration Rate 101 (60-); Glucose, Blood 122 mg/dL (70-99); Potassium, Blood 3.5 mmol/L (3.5-5.5); Sodium, Blood 136 mmol/L (136-145); Total Protein, Blood 7.3 g/dL (6.4-8.2)
== END 2024-09-06 13:40 | disposition home or self-care (01) ==
LOC: ATC 01:05
PROVIDERS: Internal Medicine Infectious Disease
DX: R78.81 Bacteremia (principal); B95.62 Methicillin resistant Staphylococcus aureus infection as the cause of diseases classified elsewhere; Z87.891 Personal history of nicotine dependence
CPT/HCPCS: 80053; 82550; 85025; 85651; 86140; 96365; J0878

== ENCOUNTER 2024-09-07 03:42 | Day surgery (SDC) | payer MEDICARE, BC ==
[2024-09-07] MEDS ORDERED: DAPTOmycin 600 MG in NS 50 ML IV SCH (06:00)
[2024-09-07 13:05] VITALS: BP 181/87
== END 2024-09-07 13:23 | disposition home or self-care (01) ==
LOC: ATC 03:42
DX: R78.81 Bacteremia (principal); B95.62 Methicillin resistant Staphylococcus aureus infection as the cause of diseases classified elsewhere; Z87.891 Personal history of nicotine dependence
CPT/HCPCS: 96365; J0878

== ENCOUNTER 2025-02-22 08:15 | Day surgery (SDC) | payer MEDICARE, BC ==
[~2025-02-22] VITALS: Ht 165.1 cm; Wt 84.9 kg
[2025-02-22] VITALS (12 sets, daily range): BP systolic 111–155; BP diastolic 50–87
[~2025-02-22 08:15] MED LIST changes: +ACET500 PO; +ATORVASTATIN CA80 M1 PO; +CeFAZolin Sodium 2,000 MG in NS 100 ML IV SCH; +GALZIN50 MG PO
--- NOTE | 2025-02-22 09:13 | NUR ---
History, Chart, Medications and Allergies reviewed before start of procedure. Pre-Op teaching done. Pt verbalizes understanding. Patient confirms NPO status and agrees with scheduled surgery.
--- NOTE | 2025-02-22 09:14 | NUR ---
PT BELONGINGS BAG PLACED UNDER GURNEY.
[2025-02-22] MEDS ORDERED: Bupivacaine 0.5% HCl 5 MG/ML 30MLVIAL ONE (09:49)
[2025-02-22] MEDS ORDERED: FentaNYL Citrate 50 MCG/ML 2 ML Injection ONE ×2 (10:16→13:01)
[2025-02-22] MEDS ORDERED: Dexamethasone Sod Phos 10 MG/ML 1ML VIAL ONE (10:17)
[2025-02-22] MEDS ORDERED: Rocuronium Bromide 10 MG/ML 5ML Injection IV ONE ×2 (10:17→11:40)
[2025-02-22] MEDS ORDERED: Ondansetron HCl 2 MG / ML 2ML Vial IV PRN (10:40)
[2025-02-22] MEDS ORDERED: HYDROmorphone HCl/Pf 1MG SYR IV PRN (10:40)
[2025-02-22] MEDS ORDERED: FentaNYL Citrate 50 MCG/ML 2 ML Injection IV PRN (10:40)
[2025-02-22] MEDS ORDERED: Ketorolac Tromethamine 30mg Vial ONE (12:26)
[2025-02-22] MEDS ORDERED: Sugammadex Sodium 200 MG/2ML SDV (100 MG/ML) ONE (12:26)
[2025-02-22] MEDS ORDERED: Ondansetron HCl 2 MG / ML 2ML Vial ONE ×2 (12:26→13:17)
[2025-02-22] MEDS ORDERED: HYDROcodone 5-APAP 325 TAB PO PRN (12:50)
--- NOTE | 2025-02-22 14:52 | NUR ---
DISCHARGE NOTE PT A&OX4, BREATHING RA, CALM, AT BEDSIDE, TOLERATING PO INTAKE. PT STATES NAUSEA IS GONE AND PAIN IS TOLERABLE AFTER PAIN MEDICATION X2. 25CC RED DRAINAGE REMOVED FROM TREMAYNE DRAIN, DRAIN CARE INSRUCTIONS GIVEN. Patient up to Ambulate independently. Gait steady. Discharge instructions reviewed with patient. Patient verbalizes understanding. Copy given to patient to take home. Dressing to procedure site clean, dry, intact with no visible drainage, swelling, erythema or bruising noted.ICE PACKS PROVIDED. PT HAS SLIGHT BRUISING AND SWELLING TO R WRIST FROM FALL DURING CHECK IN FOR SURGERY. Discharged via wheelchair to private car for ride home.
== END 2025-02-22 14:40 | disposition home or self-care (01) ==
LOC: ORSCMMR 08:15 → ORD 09:45 → ORSCMMR 09:45 → ORD 10:45 → ORSCMMR 10:45
PROVIDERS: Surgery
PROC: 0WUF0JZ Supplement Abdominal Wall with Synthetic Substitute, Open Approach (ICD-10-PCS; principal; 2025-02-22 09:45)
DX: K43.2 Incisional hernia without obstruction or gangrene (principal); E78.00 Pure hypercholesterolemia, unspecified; I10 Essential (primary) hypertension; Z95.2 Presence of prosthetic heart valve; I25.10 Atherosclerotic heart disease of native coronary artery without angina pectoris; F32.A Depression, unspecified; Z79.899 Other long term (current) drug therapy; Z79.82 Long term (current) use of aspirin; Z87.891 Personal history of nicotine dependence
CPT/HCPCS: A9270; C1781; J0690; J1100; J1885; J2405; J2704; J3010; J7120